=== PATIENT | male | born 1980 | race Caucasian/White ===

== ENCOUNTER 2016-09-04 10:37 | Emergency (ER) | payer BC ==
[2016-09-04 10:45] VITALS: BP 140/74; PULSE 58; RESP 15; TEMP 98.3
[2016-09-04] MEDS ORDERED: SODIUM CHLORIDE 0.9% 1,000 ML IV STA (10:47)
--- NOTE | 2016-09-04 10:55 | ED ---
Abdominal Pain HPI - General Chief Complaint: Abdominal Pain Stated Complaint: rt side pain/flank pain Time Seen by Provider: 09/04/16 10:47 Source: patient, RN notes reviewed Mode of arrival: ambulatory Limitations: no limitations - History of Present Illness Initial Comments: 36-year-old male presents emergency Department with chief complaint of right flank pain. Patient states it started approximately one hour ago. Patient states his son onset most severe pains are felt states nothing needed made it feel better or worse. Patient states that he did have an episode of dry heaving and states that now has subsided. Patient states pain is essentially resolved. He has no history kidney stones patient denies fever, chills, diarrhea constipation. Patient states that he was at some did not come emergency department because he was feeling better. - Related Data Previous Rx's Medication Instructions Recorded Hydrocodone/Acetaminophen [Theodore 1 tab PO Q6HR PRN #20 tab 09/04/16 5-325] Ibuprofen [Motrin] 600 mg PO Q8HR PRN #30 tab 09/04/16 Ondansetron Odt [Zofran Odt] 4 mg PO Q8HR PRN #10 tab 09/04/16 Allergies Allergy/AdvReac Type Severity Reaction Status Date / Time No Known Allergies Allergy Verified 09/04/16 10:45 Review of Systems ROS Statement: Those systems with pertinent positive or pertinent negative responses have been documented in the HPI. ROS Other: All systems not noted in ROS Statement are negative. Past Medical History Past Medical History: No Reported History History of Any Multi-Drug Resistant Organisms: None Reported Past Surgical History: No Surgical Hx Reported Past Psychological History: No Psychological Hx Reported Smoking Status: Never smoker Past Alcohol Use History: Occasional, Rare Past Drug Use History: None Reported General Exam Limitations: no limitations General appearance: alert, in no apparent distress Head exam: Present: atraumatic, normocephalic, normal inspection Respiratory exam: Present: normal lung sounds bilaterally. Absent: respiratory distress, wheezes, rales, rhonchi, stridor Cardiovascular Exam: Present: regular rate, normal rhythm, normal heart sounds. Absent: systolic murmur, diastolic murmur, rubs, gallop, clicks GI/Abdominal exam: Present: soft, normal bowel sounds. Absent: distended, tenderness, guarding, rebound, rigid Back exam: Absent: CVA tenderness (R), CVA tenderness (L) Neurological exam: Present: alert, oriented X3, CN II-XII intact Skin exam: Present: warm, dry, intact, normal color. Absent: rash Course Vital Signs 09/04/16 10:41 Temperature 98.3 F Pulse Rate 58 L Respiratory 15 Rate Blood Pressure 140/74 O2 Sat by Pulse 96 Oximetry Medical Decision Making - Medical Decision Making 36-year-old male present emergency from for some separate flank pain. Patient does have hematuria KUB does not reveal anystone. Patient remains symptom-free at this time. Patient most likely has passed stone into his bladder or urinated out. Patient be discharged with medications if symptoms return. Patient agrees this plan AND transfer. - Lab Data Lab Results 09/04/16 Range/Units 11:11 Urine Color Yellow Urine Appearance Clear (Clear) Urine pH 6.5 (5.0-8.0) Ur Specific [place] 1.012 (1.001-1.035) Urine Protein Trace H (Negative) Urine Glucose (UA) Negative (Negative) Urine Ketones Negative (Negative) Urine Blood Moderate H (Negative) Urine Nitrite Negative (Negative) Urine Bilirubin Negative (Negative) Urine Urobilinogen <2.0 (<2.0) mg/dL Ur Leukocyte Esterase Negative (Negative) Urine RBC 46 H (0-5) /hpf Urine WBC 4 (0-5) /hpf Hyaline Casts 3 H (0-2) /lpf Urine Mucus Rare H (None) /hpf Disposition Clinical Impression: Kidney stone, Right flank pain Disposition: HOME SELF-CARE Condition: Stable Instructions: Kidney Stones (ED) Additional Instructions: Please return to the Emergency Department if symptoms worsen or any other concerns. Prescriptions: Hydrocodone/Acetaminophen [Theodore 5-325] 1 tab PO Q6HR PRN #20 tab PRN Reason: Pain Ibuprofen [Motrin] 600 mg PO Q8HR PRN #30 tab PRN Reason: Pain Ondansetron Odt [Zofran Odt] 4 mg PO Q8HR PRN #10 tab PRN Reason: Nausea Referrals: Artur Crawford MD [Primary Care Provider] - 1-2 days
--- NOTE | 2016-09-04 11:08 | XR ---
EXAMINATION TYPE: XR KUB DATE OF EXAM ORDERED: 09/04/2016 HISTORY: abdominal pain. The patient states that he has right-sided flank pain. COMPARISON: None. FINDINGS: The abdominal gas pattern is normal. There is no evidence of obstruction or free air. No u nusual calcifications are seen. Specifically no calcifications are noted over the right kidney or juan ng the expected course of the right ureter. The right hip is visualized in the femoral head is nonspherical. IMPRESSION: 1. NO ACUTE INTRA-ABDOMINAL ABNORMALITY. 2. PLEASE CORRELATE CLINICALLY FOR FEMOROACETABULAR IMPINGEMENT SYNDROME.
[2016-09-04 11:38] LABS: Appearance,Urine Clear (Clear); Bilirubin,Urine Negative (Negative); Glucose,Urine (UA) Negative (Negative); Ketones,Urine Negative (Negative); Leukocyte Esterase,Urine Negative (Negative); Mucus,Urine Rare /hpf; Nitrite,Urine Negative (Negative); PH, Urine 6.5 (5.0-8.0); Particle Count 2875; Protein,Urine Trace (Negative); RBC,Urine 46 /hpf (0-5); Specific Gravity,Urine 1.012 (1.001-1.035); UA Billing (MACRO vs. MICRO) MICRO; Urobilinogen,Urine <2.0 mg/dL (<2.0); WBC,Urine 4 /hpf (0-5)
== END 2016-09-04 11:40 | disposition home or self-care (01) ==
LOC: EC 10:37
DX: N20.0 Calculus of kidney (principal)
CPT/HCPCS: 74000; 81001; 99284

== ENCOUNTER 2016-10-23 20:52 | Emergency (ER) | payer BC ==
[2016-10-23] MEDS ORDERED: SODIUM CHLORIDE 0.9% 1,000 ML IV STA (21:20)
[2016-10-23] MEDS ORDERED: MECLIZINE 12.5 MG TAB PO STA (21:20)
--- NOTE | 2016-10-23 21:23 | ED ---
General Adult HPI - General Chief complaint: Dizziness Stated complaint: Dizzy/Vomiting Time Seen by Provider: 10/23/16 21:14 Source: patient, family, RN notes reviewed Mode of arrival: wheelchair Limitations: no limitations - History of Present Illness Initial comments: 36-year-old male presents to the emergency department with a chief complaint of dizziness. Patient states that yesterday and episode but the world was spinning he has some nausea without vomiting. Patient states that today the world started to have an episode of spitting then he threw up once or twice. Patient states just feels like he can't focus his eyes. Patient states that he' s his eyes closed he does feel better. Patient states he's had about 5 or 6 episodes of this over the last year or so. Patient states she was concerned when he throughout should be. Patient states it is not currently having any other symptoms. Patient denies any recent fever, chills, shortness of breath, chest pain, back pain, abdominal pain, nausea vomiting, numbness or tingling, dysuria or hematuria, constipation or diarrhea, headaches or visual changes, or any other current symptoms. - Related Data Previous Rx's Medication Instructions Recorded Meclizine [Antivert] 12.5 mg PO Q6H #20 tablet 10/23/16 Allergies Allergy/AdvReac Type Severity Reaction Status Date / Time No Known Allergies Allergy Verified 10/23/16 20:58 Review of Systems ROS Statement: Those systems with pertinent positive or pertinent negative responses have been documented in the HPI. ROS Other: All systems not noted in ROS Statement are negative. Past Medical History Past Medical History: No Reported History History of Any Multi-Drug Resistant Organisms: None Reported Past Surgical History: No Surgical Hx Reported Past Psychological History: No Psychological Hx Reported Smoking Status: Never smoker Past Alcohol Use History: Occasional, Rare Past Drug Use History: None Reported General Exam - General Exam Comments Initial Comments: General: The patient is awake and alert, in no distress, and does not appear acutely ill. Eye: Pupils are equal, round and reactive to light, extra-ocular movements are intact; there is normal conjunctiva bilaterally. No signs of icterus. Ears, nose, mouth and throat: There are moist mucous membranes and no oral lesions. Neck: The neck is supple, there is no tenderness. Cardiovascular: There is a regular rate and rhythm. No murmur, rub or gallop is appreciated. Respiratory: Lungs are clear to auscultation, respirations are non-labored, breath sounds are equal. No wheezes, stridor, rales, or rhonchi. Gastrointestinal: Soft, non-distended, non-tender abdomen without masses or organomegaly noted. There is no rebound or guarding present. No CVA tenderness. Bowel sounds are unremarkable. Back: There is no tenderness to palpation in the midline. There is no obvious deformity. No rashes noted. Musculoskeletal: Normal ROM, no tenderness, There is no pedal edema. There is no calf tenderness or swelling. Sensation intact. Pulses equal bilaterally 2+. Neurological: CN II-XII intact, There are no obvious motor or sensory deficits. Coordination appears grossly intact. Speech is normal. Negative Romberg's, negative ataxia. Skin: Skin is warm and dry and no rashes or lesions are noted. Psychiatric: Cooperative, appropriate mood & affect, normal judgment. Limitations: no limitations Course Vital Signs 10/23/16 10/23/16 10/23/16 20:55 21:39 22:23 Temperature 97.1 F L Pulse Rate 54 L 64 70 Respiratory 18 16 16 Rate Blood Pressure 126/89 119/69 127/69 O2 Sat by Pulse 98 99 100 Oximetry EKG Findings - EKG Comments: EKG Findings:: Sinus bradycardia with sinus arrhythmia ventricular rate 62, normal axis, no atopy, no S-T depressions or elevations, Medical Decision Making - Medical Decision Making 36-year-old male presents to the emergency department with a chief complaint of dizziness. At this time patient's symptoms are consistent with vertigo. CAT scan of the center show some nasal congestion. This time we did discuss that we will given Antivert for home. He states he has had great improvement of his dizziness with the Antivert here. We did give him follow-up urology we did discuss return parameters all the questions that he stated he understood he is given plan. He will be discharged. - Lab Data Result diagrams: 10/23/16 21:38 10/23/16 21:38 Lab Results 10/23/16 10/23/16 Range/Units 21:38 21:38 WBC 7.5 (3.8-10.6) k/uL RBC 5.23 (4.30-5.90) m/uL Hgb 15.4 (13.0-17.5) gm/dL Hct 44.2 (39.0-53.0) % MCV 84.5 (80.0-100.0) fL MCH 29.4 (25.0-35.0) pg MCHC 34.8 (31.0-37.0) g/dL RDW 12.2 (11.5-15.5) % Plt Count 294 (150-450) k/uL Neutrophils % 66 % Lymphocytes % 25 % Monocytes % 5 % Eosinophils % 3 % Basophils % 1 % Neutrophils # 5.0 (1.3-7.7) k/uL Lymphocytes # 1.9 (1.0-4.8) k/uL Monocytes # 0.4 (0-1.0) k/uL Eosinophils # 0.2 (0-0.7) k/uL Basophils # 0.0 (0-0.2) k/uL Sodium 142 (137-145) mmol/L Potassium 4.3 (3.5-5.1) mmol/L Chloride 102 (98-107) mmol/L Carbon Dioxide 29 (22-30) mmol/L Anion Gap 11 mmol/L BUN 14 (9-20) mg/dL Creatinine 1.20 (0.66-1.25) mg/dL Est GFR (MDRD) Af Amer >60 (>60 ml/min/1.73 sqM) Est GFR (MDRD) Non-Af >60 (>60 ml/min/1.73 sqM) Glucose 103 H (74-99) mg/dL Calcium 9.9 (8.4-10.2) mg/dL Total Bilirubin 0.3 (0.2-1.3) mg/dL AST 26 (17-59) U/L ALT 46 (21-72) U/L Alkaline Phosphatase 75 (38-126) U/L Total Protein 7.7 (6.3-8.2) g/dL Albumin 4.6 (3.5-5.0) g/dL - Radiology Data Radiology results: report reviewed, image reviewed Disposition Clinical Impression: Vertigo Disposition: HOME SELF-CARE Condition: Stable Instructions: Dizziness (ED), Vertigo (ED) Additional Instructions: Please use medication as discussed. Please follow up with family doctor if symptoms have not improved over the next two days. Please return to the emergency room if your symptoms increase or worsen or for any other concerns. Prescriptions: Meclizine [Antivert] 12.5 mg PO Q6H #20 tablet Referrals: Artur Crawford MD [Primary Care Provider] - 1-2 days Time of Disposition: 22:39
[2016-10-23 21:53] LABS: Basophils % (A) 1 %; CH 29.7; CHCM 35.3; Eosinophils # (A) 0.2 k/uL (0-0.7); Eosinophils % (A) 3 %; HCT 44.2 % (39.0-53.0); HDW 2.92; HGB 15.4 gm/dL (13.0-17.5); Luc # (Auto) 0.11; Luc % (Auto) 1; Lymphocytes # (A) 1.9 k/uL (1.0-4.8); Lymphocytes % (A) 25 %; MCH 29.4 pg (25.0-35.0); MCHC 34.8 g/dL (31.0-37.0); MCV 84.5 fL (80.0-100.0); Mean Platelet Volume 6.6; Monocytes # (A) 0.4 k/uL (0-1.0); Monocytes % (A) 5 %; Neutrophils % (A) 66 %; RBC 5.23 m/uL (4.30-5.90); RDW 12.2 % (11.5-15.5); WBC 7.5 k/uL (3.8-10.6); WBC (Perox) 7.58
[2016-10-23 21:57] LABS: ALT 46 U/L (21-72); AST 26 U/L (17-59); Alkaline Phosphatase 75 U/L (38-126); Anion Gap 11 mmol/L; Blood Urea Nitrogen 14 mg/dL (9-20); Calcium 9.9 mg/dL (8.4-10.2); Carbon Dioxide 29 mmol/L (22-30); Chloride 102 mmol/L (98-107); Glucose 103 mg/dL (74-99); Non-African American GFR(MDRD) >60 (>60 ml/min/1.73 sqM); Potassium 4.3 mmol/L (3.5-5.1); Sodium 142 mmol/L (137-145); Total Bilirubin 0.3 mg/dL (0.2-1.3); Total Protein 7.7 g/dL (6.3-8.2)
--- NOTE | 2016-10-23 22:16 | CT ---
EXAMINATION TYPE: CT brain wo con DATE OF EXAM: 10/23/2016 COMPARISON: NONE HISTORY: 36-year-old male with Headache, dizziness and nausea and vomiting. TECHNIQUE: Examination was done in axial plane without intravenous contrast. Coronal and sagittal r econstructions performed. CT DLP: 1052.60 mGycm Automated exposure control for dose reduction was used. FINDINGS: There is no evidence of acute intracranial hemorrhage, acute ischemic changes, mass, mass-effect, or extra-axial fluid collection. There is no effacement of cerebral sulci or basal subarachnoid cister ns. There is no hydrocephalus. There is no midline shift. Quintero-white matter distinction is preserv ed. There appears to be prominent soft tissue within the nasal cavity that could represent nasal congesti on. Mild mucosal thickening within the ethmoid air cells. Mastoid air cells are well pneumatized. Orb its and globes appear intact. IMPRESSION: 1. No acute intracranial abnormality seen. 2. Prominent soft tissue in the nasal cavity probably due to nasal congestion. Clinically correlate.
[2016-10-23 22:46] VITALS: BP 124/74; PULSE 59; RESP 18; TEMP 97.6
== END 2016-10-23 22:49 | disposition home or self-care (01) ==
LOC: EC 20:52
DX: R42 Dizziness and giddiness (principal); R11.0 Nausea; R09.81 Nasal congestion
CPT/HCPCS: 36415; 70450; 80053; 85025; 93005; 96360; 99284

== ENCOUNTER 2019-05-05 20:31 | Emergency (ER) | payer BC ==
[2019-05-05] MEDS ORDERED: methylPREDNISolone SOD SUCCI 125 MG/2 ML VIAL IV STA (21:23)
[2019-05-05] MEDS ORDERED: MAGNESIUM SULFATE-D5W PMX 1 GM in DEXTROSE/WATER 1 100ML.BAG IVPB STA (21:23)
[2019-05-05] MEDS ORDERED: IPRATROPIUM-ALBUTEROL 3 ML NEB INHALATION STA (21:23)
--- NOTE | 2019-05-05 21:51 | XR ---
EXAMINATION TYPE: XR chest 2V DATE OF EXAM: 05/05/2019 COMPARISON: NONE HISTORY: Difficulty breathing TECHNIQUE: FINDINGS: Heart and mediastinum are normal. There is small area of pneumonia in the left lower lobe i n the posterior basal segment. The other lung hua are clear. Bony thorax appears normal. IMPRESSION: Mild left lower lobe pneumonia.
[2019-05-05 21:56] LABS: Basophils % (A) 0 %; Eosinophils % (A) 0 %; HCT 42.8 % (39.0-53.0); HGB 14.4 gm/dL (13.0-17.5); Lymphocytes # (A) 0.8 k/uL (1.0-4.8); Lymphocytes % (A) 4 %; MCH 28.7 pg (25.0-35.0); MCHC 33.6 g/dL (31.0-37.0); MCV 85.5 fL (80.0-100.0); Mean Platelet Volume 7.3; Monocytes # (A) 0.7 k/uL (0-1.0); Monocytes % (A) 4 %; Neutrophils # (A) 17.3 k/uL (1.3-7.7); Neutrophils % (A) 91 %; Platelet Count 321 k/uL (150-450); RBC 5.01 m/uL (4.30-5.90); RDW 11.7 % (11.5-15.5); WBC 18.9 k/uL (3.8-10.6)
[2019-05-05 22:11] LABS: ALT 19 U/L (4-49); AST 23 U/L (17-59); African American GFR (CKD) >90 (>60 ml/min/1.73 sqM); Albumin 4.3 g/dL (3.5-5.0); Alkaline Phosphatase 82 U/L (38-126); Anion Gap 10 mmol/L; Blood Urea Nitrogen 16 mg/dL (9-20); Calcium 9.8 mg/dL (8.4-10.2); Carbon Dioxide 25 mmol/L (22-30); Chloride 101 mmol/L (98-107); D-Dimer 0.22 mg/L FEU (<0.60); Glucose 129 mg/dL (74-99); Non-African American GFR(CKD) 83 (>60 ml/min/1.73 sqM); Partial Thromboplastin Time 24.9 sec (22.0-30.0); Potassium 4.6 mmol/L (3.5-5.1); Prothrombin Time 10.5 sec (9.0-12.0); Sodium 136 mmol/L (137-145); Total Bilirubin 0.9 mg/dL (0.2-1.3); Total Protein 7.8 g/dL (6.3-8.2)
[2019-05-05 22:32] VITALS: PULSE 88
[2019-05-05] MEDS ORDERED: cefTRIAXone IN SWFI 1,000 MG/10 ML SYRINGE IVP STA (22:38)
--- NOTE | 2019-05-05 23:09 | ED ---
SOB HPI - General Chief Complaint: Shortness of Breath Stated Complaint: MAURICE Time Seen by Provider: 05/05/19 20:35 Source: patient Mode of arrival: ambulatory Limitations: no limitations - History of Present Illness Initial Comments: The patient is a 38-year-old previously healthy male who presents to the emergency room with reported cough. He states that he has had a cough and shortness of breath with a past week. He was seen at his primary care office yesterday. He was given prescriptions for prednisone, Tessalon Perles, an inhaler and azithromycin. He began taking the medications and has only taken 2 doses however he reports that he feels worse. He states he feels more short of breath with nonproductive cough. Denies any sick contacts with similar symptoms. Admits to chills without fevers. No nausea or vomiting. Denies any chest pain. Does admit to chest wall pain with coughing. No abdominal pain. Denies diarrhea, constipation, melanotic stools or hematochezia. No lower crummy swelling. Does admit that his mom was diagnosed with a blood clot 6 months ago. It was unprovoked. Denies any headaches or visual changes. Denies syncope or presyncope. There are no alleviating, precipitating or modifying factors - Related Data Previous Rx's Medication Instructions Recorded Meclizine [Antivert] 12.5 mg PO Q6H #20 tablet 10/23/16 Albuterol Nebulized [Ventolin 2.5 mg INHALATION Q4H PRN #25 nebu 05/05/19 Nebulized] Amoxicillin/Potassium Clav 1 tab PO Q12HR #20 tab 05/05/19 [Augmentin 875-125 Tablet] Ipratropium Nebulized [Atrovent 0.5 mg INHALATION Q4HR #25 neb 05/05/19 Nebulized 0.2 MG/ML] Allergies Allergy/AdvReac Type Severity Reaction Status Date / Time No Known Allergies Allergy Verified 10/23/16 20:58 Review of Systems ROS Statement: Those systems with pertinent positive or pertinent negative responses have been documented in the HPI. ROS Other: All systems not noted in ROS Statement are negative. Past Medical History Past Medical History: No Reported History History of Any Multi-Drug Resistant Organisms: None Reported Past Surgical History: No Surgical Hx Reported Past Psychological History: No Psychological Hx Reported Smoking Status: Never smoker Past Alcohol Use History: Occasional, Rare Past Drug Use History: None Reported General Exam Limitations: no limitations General appearance: alert, in no apparent distress Head exam: Present: atraumatic, normocephalic, normal inspection Eye exam: Present: normal appearance, PERRL, EOMI. Absent: scleral icterus, conjunctival injection, periorbital swelling ENT exam: Present: normal exam, mucous membranes moist Neck exam: Present: normal inspection. Absent: tenderness, meningismus, lymphadenopathy Respiratory exam: Present: wheezes. Absent: respiratory distress, rales, rhonchi, stridor Cardiovascular Exam: Present: regular rate, normal rhythm, normal heart sounds. Absent: systolic murmur, diastolic murmur, rubs, gallop, clicks GI/Abdominal exam: Present: soft, normal bowel sounds. Absent: distended, tenderness, guarding, rebound, rigid Extremities exam: Present: normal inspection, full ROM, normal capillary refill. Absent: tenderness, pedal edema, joint swelling, calf tenderness Back exam: Present: normal inspection Neurological exam: Present: alert, oriented X3, CN II-XII intact Psychiatric exam: Present: normal affect, normal mood Skin exam: Present: warm, dry, intact, normal color. Absent: rash Course Vital Signs 05/05/19 05/05/19 05/05/19 20:33 20:50 21:52 Temperature 98.6 F Pulse Rate 96 91 Respiratory 18 18 20 Rate Blood Pressure 144/84 127/74 O2 Sat by Pulse 94 L 98 Oximetry 05/05/19 05/05/19 05/05/19 22:19 22:32 23:09 Temperature 98 F Pulse Rate 87 88 88 Respiratory 18 Rate Blood Pressure 115/57 O2 Sat by Pulse 95 Oximetry 05/05/19 23:16 Temperature 98 F Pulse Rate 88 Respiratory 18 Rate Blood Pressure 115/57 O2 Sat by Pulse 95 Oximetry Medical Decision Making - Medical Decision Making Upon arrival the patient was placed into room 5. A thorough history and physical exam was performed. Peripheral IV was established. The patient was given 125 mg of Solu-Medrol, 1 g of magnesium and provided with a DuoNeb breathing treatment. Laboratory studies were conducted which demonstrated an elevated white blood cell count of 18.9. Troponin is negative. Influenza A and B are negative. Chest x-ray does demonstrate a mild left lower lobe pneumonia. I discussed this with the patient. A blood culture was obtained and the patient was given a dose of Rocephin. He is REM azithromycin at home. The patient is saturating 94-95% without oxygen assistance. He demonstrates no conversational dyspnea. I discussed the diagnosis, differential and treatment options. I did offer hospital admission because of the patient's tachycardia and low oxygen saturation however he states that he wanted to go home. He has not failed outpatient treatment as he has not taken enough doses of the medication. I inf ormed him that I did want to add on Augmentin to his regimen. I also provided the patient with a prescription for Ventolin and ipratropium. He does have access to a nebulizer at home. He needs to follow up with his primary care doctor in 2-4 days to ensure he is improving. He needs a repeat chest x-ray in 6 weeks. Return to the emergency department for any new or worsening symptoms. The patient his are in agreement with the treatment plan and the patient was discharged home in stable condition - Lab Data Result diagrams: 05/05/19 21:00 05/05/19 21:00 Lab Results 05/05/19 05/05/19 05/05/19 Range/Units 21:00 21:00 21:00 WBC 18.9 H (3.8-10.6) k/uL RBC 5.01 (4.30-5.90) m/uL Hgb 14.4 (13.0-17.5) gm/dL Hct 42.8 (39.0-53.0) % MCV 85.5 (80.0-100.0) fL MCH 28.7 (25.0-35.0) pg MCHC 33.6 (31.0-37.0) g/dL RDW 11.7 (11.5-15.5) % Plt Count 321 (150-450) k/uL Neutrophils % 91 % Lymphocytes % 4 % Monocytes % 4 % Eosinophils % 0 % Basophils % 0 % Neutrophils # 17.3 H (1.3-7.7) k/uL Lymphocytes # 0.8 L (1.0-4.8) k/uL Monocytes # 0.7 (0-1.0) k/uL Eosinophils # 0.0 (0-0.7) k/uL Basophils # 0.0 (0-0.2) k/uL PT (9.0-12.0) sec INR (<1.2) APTT (22.0-30.0) sec D-Dimer (<0.60) mg/L FEU Sodium 136 L (137-145) mmol/L Potassium 4.6 (3.5-5.1) mmol/L Chloride 101 (98-107) mmol/L Carbon Dioxide 25 (22-30) mmol/L Anion Gap 10 mmol/L BUN 16 (9-20) mg/dL Creatinine 1.14 (0.66-1.25) mg/dL Est GFR (CKD-EPI)AfAm >90 (>60 ml/min/1.73 sqM) Est GFR (CKD-EPI)NonAf 83 (>60 ml/min/1.73 sqM) Glucose 129 H (74-99) mg/dL Plasma Lactic Acid Rafa 1.3 (0.7-2.0) mmol/L Calcium 9.8 (8.4-10.2) mg/dL Total Bilirubin 0.9 (0.2-1.3) mg/dL AST 23 (17-59) U/L ALT 19 (4-49) U/L Alkaline Phosphatase 82 (38-126) U/L Troponin I (0.000-0.034) ng/mL Total Protein 7.8 (6.3-8.2) g/dL Albumin 4.3 (3.5-5.0) g/dL Influenza Type A RNA (Not Detectd) Influenza Type B (PCR) (Not Detectd) 05/05/19 05/05/19 05/05/19 Range/Units 21:00 21:00 22:00 WBC (3.8-10.6) k/uL RBC (4.30-5.90) m/uL Hgb (13.0-17.5) gm/dL Hct (39.0-53.0) % MCV (80.0-100.0) fL MCH (25.0-35.0) pg MCHC (31.0-37.0) g/dL RDW (11.5-15.5) % Plt Count (150-450) k/uL Neutrophils % % Lymphocytes % % Monocytes % % Eosinophils % % Basophils % % Neutrophils # (1.3-7.7) k/uL Lymphocytes # (1.0-4.8) k/uL Monocytes # (0-1.0) k/uL Eosinophils # (0-0.7) k/uL Basophils # (0-0.2) k/uL PT 10.5 (9.0-12.0) sec INR 1.0 (<1.2) APTT 24.9 (22.0-30.0) sec D-Dimer 0.22 (<0.60) mg/L FEU Sodium (137-145) mmol/L Potassium (3.5-5.1) mmol/L Chloride (98-107) mmol/L Carbon Dioxide (22-30) mmol/L Anion Gap mmol/L BUN (9-20) mg/dL Creatinine (0.66-1.25) mg/dL Est GFR (CKD-EPI)AfAm (>60 ml/min/1.73 sqM) Est GFR (CKD-EPI)NonAf (>60 ml/min/1.73 sqM) Glucose (74-99) mg/dL Plasma Lactic Acid Rafa (0.7-2.0) mmol/L Calcium (8.4-10.2) mg/dL Total Bilirubin (0.2-1.3) mg/dL AST (17-59) U/L ALT (4-49) U/L Alkaline Phosphatase (38-126) U/L Troponin I <0.012 (0.000-0.034) ng/mL Total Protein (6.3-8.2) g/dL Albumin (3.5-5.0) g/dL Influenza Type A RNA Not Detected (Not Detectd) Influenza Type B (PCR) Not Detected (Not Detectd) - EKG Data EKG Comments: EKG demonstrates normal sinus rhythm with ventricular rate 90. ID interval 164. QRS 80. QTC of 406. No acute ST segment elevations or depressions concerning for ischemic changes. No signs of Hoeiw-Njgumqvbv-Jmfdu or Brugada. Disposition Clinical Impression: Pneumonia, Leukocytosis Disposition: HOME SELF-CARE Condition: Stable Instructions (If sedation given, give patient instructions): Bacterial Pneumonia (ED) Additional Instructions: Please follow-up with your primary care doctor in 2-4 days. If you have no improvement in your symptoms return to the emergency department. Use the breathing treatments every 4 hours. Continue taking the azithromycin and steroids at home. Prescriptions: Ipratropium Nebulized [Atrovent Nebulized 0.2 MG/ML] 0.5 mg INHALATION Q4HR #25 neb Amoxicillin/Potassium Clav [Augmentin 875-125 Tablet] 1 tab PO Q12HR #20 tab Albuterol Nebulized [Ventolin Nebulized] 2.5 mg INHALATION Q4H PRN #25 nebu PRN Reason: difficulty in breathing Is patient prescribed a controlled substance at d/c from ED?: No Referrals: Edwardo Park MD [Primary Care Provider] - 1-2 days Time of Disposition: 23:09
[2019-05-05 23:11] VITALS: BP 115/57; RESP 18; TEMP 98
== END 2019-05-05 23:17 | disposition home or self-care (01) ==
LOC: EC 20:31
DX: J18.9 Pneumonia, unspecified organism (principal); D72.829 Elevated white blood cell count, unspecified; R00.0 Tachycardia, unspecified; Z53.20 Procedure and treatment not carried out because of patient's decision for unspecified reasons
CPT/HCPCS: 36415; 94640; 93005; 85379; 80053; 83605; 84484; 85025; 85610; 85730; 87040; 87502; 71046; 99285; 96365; 96375 ×2; J2930; J0696; J3475

== ENCOUNTER → 2022-02-15 | Outpatient (CLI) | payer BC ==
--- NOTE | 2022-02-15 20:06 | CT ---
EXAMINATION TYPE: CT chest w con CT DLP: 528.8 mGycm, Automated exposure control for dose reduction was used. 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 Sagittal and coronal reformats were created for review. Contrast used:100 mL of Isovue 370 with IV Contrast Oral contrast used: none. FINDINGS: LUNGS/ PLEURA: The lung parenchyma appears unremarkable. AIRWAY: Patent and unremarkable. HEART: Size within normal limits. MEDIASTINUM: No gross evidence of adenopathy. Lipomatous lesion measuring 7.5 x 4.8 x 3.3 cm in the i nferior posterior mediastinum near the gastroesophageal junction on the right of the esophagus. VASCULATURE: No aortic aneurysm. MUSCULOSKELETAL: No acute osseous abnormalities SOFT TISSUES/LYMPH NODES: Unremarkable. LOWER NECK: No significant findings. UPPER ABDOMEN: Nonobstructing right renal calculus.1 IMPRESSION: Fat-containing lesion at the gastroesophageal junction measuring up to 7.5 x 4.8 x 3.3 cm findings li miley represent a lipoma.
== END | disposition home or self-care (01) ==
LOC: CANPRECLI → RADCTMAIN 17:16
PROVIDERS: ATTEND Family Medicine
DX: D15.2 Benign neoplasm of mediastinum (principal); K63.89 Other specified diseases of intestine
CPT/HCPCS: 71260; Q9967

== ENCOUNTER → 2022-06-18 | Outpatient (CLI) | payer BC ==
--- NOTE | 2022-06-18 09:10 | FL ---
EXAMINATION TYPE: FL UGI DATE OF EXAM: 06/18/2022 COMPARISON: CT chest 02/15/2022 HISTORY: Dysphagia TECHNIQUE: A double contrast UGI study is performed. A total of 29 seconds of fluoroscopic time was utilized during procedure and 188 images obtained. Total DAP 8543.42. FINDINGS: The esophagus shows normal motility and emptying into the stomach without holdup. Small sliding-type hernia demonstrated in the supine position which reduces in the upright position. Spontaneous gastroe sophageal reflux to the midesophagus. The stomach shows normal distensibility, peristalsis, and mucosal folds. No evidence of any mass or ulcer disease. The duodenal bulb and visualized proximal small bowel are unremarkable. IMPRESSION: 1. Small sliding hiatal hernia in the supine position which reduces in the upright position. No hold up of contrast at the GE junction to suggest stricture or clinically significant extrinsic compressi on. 2. Spontaneous gastroesophageal reflux to the midesophagus.
== END | disposition home or self-care (01) ==
LOC: RADUSWWP 08:15
PROVIDERS: ATTEND Student in an Organized Health Care Education/Training Program
DX: K44.9 Diaphragmatic hernia without obstruction or gangrene (principal); K21.9 Gastro-esophageal reflux disease without esophagitis; R13.19 Other dysphagia
CPT/HCPCS: 74240

== ENCOUNTER 2023-11-16 09:09 | Inpatient (IN) | payer BC ==
[2023-11-16] MEDS: ONDANSETRON 4 MG/2 ML VIAL IVP STA (09:32)
[2023-11-16] MEDS: KETOROLAC 15 MG/ML 1 ML VIAL IVP STA (09:32)
[2023-11-16] MEDS: SODIUM CHLORIDE 0.9% 2,000 ML IV STA (09:33)
[2023-11-16 09:44] LABS: Basophils % (A) 0 %; Eosinophils # (A) 0.1 k/uL (0-0.7); Eosinophils % (A) 1 %; HCT 43.5 % (39.0-53.0); HGB 15.3 gm/dL (13.0-17.5); Lymphocytes # (A) 0.9 k/uL (1.0-4.8); Lymphocytes % (A) 8 %; MCH 30.7 pg (25.0-35.0); MCHC 35.1 g/dL (31.0-37.0); MCV 87.3 fL (80.0-100.0); Mean Platelet Volume 6.6; Monocytes # (A) 0.5 k/uL (0-1.0); Monocytes % (A) 4 %; Neutrophils # (A) 10.5 k/uL (1.3-7.7); Neutrophils % (A) 87 %; Platelet Count 310 k/uL (150-450); RBC 4.98 m/uL (4.30-5.90); RDW 12.4 % (11.5-15.5)
[2023-11-16 09:57] LABS: ALT 32 U/L (4-49); AST 27 U/L (17-59); African American GFR (CKD) 69 (>60 ml/min/1.73 sqM); Albumin 4.3 g/dL (3.5-5.0); Alkaline Phosphatase 78 U/L (38-126); Anion Gap 7 mmol/L; Blood Urea Nitrogen 17 mg/dL (9-20); Calcium 9.6 mg/dL (8.4-10.2); Carbon Dioxide 25 mmol/L (22-30); Chloride 106 mmol/L (98-107); Glucose 126 mg/dL (74-99); Lipase 50 U/L (23-300); Non-African American GFR(CKD) 60 (>60 ml/min/1.73 sqM); Potassium 4.3 mmol/L (3.5-5.1); Sodium 138 mmol/L (137-145); Total Bilirubin 0.6 mg/dL (0.2-1.3); Total Protein 7.5 g/dL (6.3-8.2)
--- NOTE | 2023-11-16 10:17 | CT ---
EXAMINATION TYPE: CT abdomen pelvis wo con CT DLP: 819.3 mGycm, Automated exposure control for dose reduction was used. DATE OF EXAM: 11/16/2023 10:05 AM COMPARISON: 02/15/2022 CLINICAL INDICATION: Male, 43 years old with history of right flank pain; Renal stone TECHNIQUE: Axial CT abdomen pelvis wo con;Sagittal and coronal reformats were created on a separate workstation. Contrast used: mL of , (none if empty) Oral contrast used: without Oral Contrast (none if empty) FINDINGS: LOWER CHEST: Similar hernia containing fat probable omentum extending along the gastroesophageal junc tion into the inferior mediastinum. ABDOMEN LIVER: Unremarkable GALLBLADDER AND BILE DUCTS: Unremarkable. PANCREAS: Unremarkable. SPLEEN: Unremarkable. ADRENAL GLANDS: Unremarkable. KIDNEYS AND URETERS: Mild right hydronephrosis secondary obstructing 6 mm calculus at the proximal ri ght ureter. No left hydronephrosis. PELVIS BLADDER: Unremarkable REPRODUCTIVE: Prostate is enlarged in size measuring 5.3 cm in transverse dimension. ABDOMEN & PELVIS STOMACH AND BOWEL: No evidence of bowel obstruction. PERITONEUM/RETROPERITONEUM: No evidence of pneumoperitoneum or free fluid. VASCULATURE: No evidence of aortic aneurysm. MUSCULOSKELETAL: No acute osseous abnormalities LYMPH NODES: No gross evidence for lymphadenopathy. SOFT TISSUE/ABDOMINAL WALL: Fat-containing umbilical hernia. IMPRESSION: 1. Mild right hydronephrosis secondary obstructing 6 mm calculus at the proximal right ureter. No le ft hydronephrosis 2. Prostatomegaly, correlate with serum PSA. 3. Similar hiatal hernia with omentum extending through the aortic hiatus.
--- NOTE | 2023-11-16 10:19 | ED ---
Abdominal Pain HPI - General Chief Complaint: Abdominal Pain Stated Complaint: Abdominal Pain Time Seen by Provider: 11/16/23 09:18 Source: patient, RN notes reviewed Mode of arrival: ambulatory Limitations: no limitations - History of Present Illness Initial Comments: 43-year-old male presents emergency department complaint of right flank pain. Patient states has had pain for several days states that he has had associated nausea vomiting states nothing is helping with the pain. Patient states initially felt in his back he has had a history of kidney stones but this feels worse. Denies any fevers or chills. - Related Data Home Medications Medication Instructions Recorded Confirmed Simvastatin [Zocor] 20 mg PO HS 11/16/23 11/16/23 Allergies Allergy/AdvReac Type Severity Reaction Status Date / Time No Known Allergies Allergy Verified 11/16/23 11:04 Review of Systems ROS Statement: Those systems with pertinent positive or pertinent negative responses have been documented in the HPI. ROS Other: All systems not noted in ROS Statement are negative. Past Medical History Past Medical History: No Reported History History of Any Multi-Drug Resistant Organisms: None Reported Past Surgical History: No Surgical Hx Reported Past Psychological History: No Psychological Hx Reported Smoking Status: Never smoker Past Alcohol Use History: Occasional, Rare Past Drug Use History: None Reported General Exam Limitations: no limitations General appearance: alert, in no apparent distress Head exam: Present: atraumatic, normocephalic, normal inspection Neck exam: Present: normal inspection. Absent: tenderness, meningismus, lymphadenopathy Respiratory exam: Present: normal lung sounds bilaterally. Absent: respiratory distress, wheezes, rales, rhonchi, stridor Cardiovascular Exam: Present: regular rate, normal rhythm, normal heart sounds. Absent: systolic murmur, diastolic murmur, rubs, gallop, clicks GI/Abdominal exam: Present: soft, tenderness, normal bowel sounds. Absent: distended, guarding, rebound, rigid Back exam: Present: CVA tenderness (R). Absent: CVA tenderness (L) Neurological exam: Present: alert Course Vital Signs 11/16/23 11/16/23 09:15 10:36 Temperature 97.8 F Pulse Rate 56 L 59 L Respiratory 18 18 Rate Blood Pressure 121/81 124/79 O2 Sat by Pulse 99 94 L Oximetry Medical Decision Making - Medical Decision Making Was pt. sent in by a medical professional or institution (Dr., PA, IMAGE ASSEMBLER, urgent care, hospital, or senior care...) When possible be specific @ -No Did you speak to anyone other than the patient for history (EMS, parent, family, police, friend...)? What history was obtained from this source @ -No Did you review nursing and triage notes (agree or disagree)? Why? @ -I reviewed and agree with nursing and triage notes Were old charts reviewed (outside hosp., previous admission, EMS record, old EKG, old radiological studies, urgent care reports/EKG's, senior care records)? Report findings @ -No old charts were reviewed Differential Diagnosis (chest pain, altered mental status, abdominal pain women, abdominal pain men, vaginal bleeding, weakness, fever, dyspnea, syncope, headache, dizziness, GI bleed, back pain, seizure, CVA, palpatations, mental health, musculoskeletal)? @ -Differential Abdominal Pain Men: Appendicitis, cholecystitis, diverticulosis, ischemic bowel, pancreatitis, hepatitis, UTI, gastroenteritis, AAA, incarcerated hernia, bowel obstruction, constipation, inflammatory bowel, hepatitis, peptic ulcer disease, splenic infarction, perforated viscus, testicular torsion, this is not meant to be an all-inclusive list EKG interpreted by me (3pts min.). @ -None X-rays interpreted by me (1pt min.). @ -None done CT interpreted by me (1pt min.). @ -CT abdomen pelvis showing evidence of right proximal ureteral calculus 6-7 mm U/S interpreted by me (1pt. min.). @ -None done What testing was considered but not performed or refused? (CT, X-rays, U/S, labs)? Why? @ -None What meds were considered but not given or refused? Why? @ -None Did you discuss the management of the patient with other professionals (professionals i.e. CAMDEN Sepulveda, IMAGE ASSEMBLER, lab, RT, psych nurse, social service liaison, seam stayer, t eacher, medical laboratory technical officer, transplant case manager)? Give summary @ -Urology regarding CT findings urinalysis and admission. Was smoking cessation discussed for >3mins.? @ -No Was critical care preformed (if so, how long)? @ -No Were there social determinants of health that impacted care today? How? (Homelessness, low income, unemployed, alcoholism, drug addiction, transportation, low edu. Level, literacy, decrease access to med. care, senior living, rehab)? @ -No Was there de-escalation of care discussed even if they declined (Discuss DNR or withdrawal of care, Hospice)? DNR status @ -No What co-morbidities impacted this encounter? (DM, HTN, Smoking, COPD, CAD, Cancer, CVA, ARF, Chemo, Hep., AIDS, mental health diagnosis, sleep apnea, morbid obesity)? @ -None Was patient admitted / discharged? Hospital course, mention meds given and route, prescriptions, significant lab abnormalities, going to OR and other pe rtinent info. @ -Admitted patient found to have UTI with obstructing ureteral calculus patient was placed on Rocephin will be kept n.p.o. after midnight and admitted to urology Undiagnosed new problem with uncertain prognosis? @ -No Drug Therapy requiring intensive monitoring for toxicity (Heparin, Nitro, Insulin, Cardizem)? @ -No Were any procedures done? @ -No Diagnosis/symptom? @ -Ureteral calculus, UTI Acute, or Chronic, or Acute on Chronic? @ -Acute Uncomplicated (without systemic symptoms) or Complicated (systemic symptoms)? @ -Complicated Side effects of treatment? @ -No Exacerbation, Progression, or Severe Exacerbation? @ -No Poses a threat to life or bodily function? How? (Chest pain, [place], [place], pneumonia, PE, COPD, DKA, ARF, appy, cholecystitis, CVA, Diverticulitis, Homicidal, Suic idal, threat to staff... and all critical care pts) @ -Yes sepsis, endorgan failure - Lab Data Result diagrams: 11/16/23 09:32 11/16/23 09:32 Lab Results 11/16/23 11/16/23 11/16/23 Range/Units 09:32 09:32 10:36 WBC 12.0 H (3.8-10.6) k/uL RBC 4.98 (4.30-5.90) m/uL Hgb 15.3 (13.0-17.5) gm/dL Hct 43.5 (39.0-53.0) % MCV 87.3 (80.0-100.0) fL MCH 30.7 (25.0-35.0) pg MCHC 35.1 (31.0-37.0) g/dL RDW 12.4 (11.5-15.5) % Plt Count 310 (150-450) k/uL MPV 6.6 Neutrophils % 87 % Lymphocytes % 8 % Monocytes % 4 % Eosinophils % 1 % Basophils % 0 % Neutrophils # 10.5 H (1.3-7.7) k/uL Lymphocytes # 0.9 L (1.0-4.8) k/uL Monocytes # 0.5 (0-1.0) k/uL Eosinophils # 0.1 (0-0.7) k/uL Basophils # 0.0 (0-0.2) k/uL Sodium 138 (137-145) mmol/L Potassium 4.3 (3.5-5.1) mmol/L Chloride 106 (98-107) mmol/L Carbon Dioxide 25 (22-30) mmol/L Anion Gap 7 mmol/L BUN 17 (9-20) mg/dL Creatinine 1.44 H (0.66-1.25) mg/dL Est GFR (CKD-EPI)AfAm 69 (>60 ml/min/1.73 sqM) Est GFR (CKD-EPI)NonAf 60 (>60 ml/min/1.73 sqM) Glucose 126 H (74-99) mg/dL Calcium 9.6 (8.4-10.2) mg/dL Total Bilirubin 0.6 (0.2-1.3) mg/dL AST 27 (17-59) U/L ALT 32 (4-49) U/L Alkaline Phosphatase 78 (38-126) U/L Total Protein 7.5 (6.3-8.2) g/dL Albumin 4.3 (3.5-5.0) g/dL Lipase 50 (23-300) U/L Urine Color Light Red Urine Appearance Turbid (Clear) Urine pH 6.5 (5.0-8.0) Ur Specific Golden 1.018 (1.001-1.035) Urine Protein 2+ H (Negative) Urine Glucose (UA) Negative (Negative) Urine Ketones Negative (Negative) Urine Blood Large H (Negative) Urine Nitrite Positive (Negative) Urine Bilirubin Negative (Negative) Urine Urobilinogen <2.0 (<2.0) mg/dL Ur Leukocyte Esterase Large H (Negative) Urine RBC >182 H (0-5) /hpf Urine WBC >182 H (0-5) /hpf Urine WBC Clumps Many H (None) /hpf Urine Bacteria Occasional H (None) /hpf Urine Mucus Rare H (None) /hpf Disposition Clinical Impression: UTI (urinary tract infection), Acute kidney injury, Ureteral calculus, right Disposition: ADMITTED IP TO THIS HOSP Condition: Fair Referrals: Edwardo Park MD [Primary Care Provider] - 1-2 days Time of Disposition: 11:46
[2023-11-16 10:56] LABS: Appearance,Urine Turbid (Clear); Bacteria,Urine Occasional /hpf; Bilirubin,Urine Negative (Negative); Blood,Urine Large (Negative); Color,Urine Light Red; Glucose,Urine (UA) Negative (Negative); Ketones,Urine Negative (Negative); Leukocyte Esterase,Urine Large (Negative); Mucus,Urine Rare /hpf; Nitrite,Urine Positive (Negative); PH, Urine 6.5 (5.0-8.0); Protein,Urine 2+ (Negative); RBC,Urine >182 /hpf (0-5); Specific Gravity,Urine 1.018 (1.001-1.035); Urobilinogen,Urine <2.0 mg/dL (<2.0); WBC,Urine >182 /hpf (0-5)
[2023-11-16] MEDS: HYDROmorphone 0.5 MG/0.5 ML SYRINGE IVP STA (11:36)
[2023-11-16] MEDS ORDERED: NALOXONE 0.4 MG/ML 1 ML VIAL IV PRN (11:46)
[2023-11-16] MEDS: SODIUM CHLORIDE 0.9% 1,000 ML IV SCH (12:23)
[2023-11-16] MEDS: ACETAMINOPHEN TAB 325 MG TAB PO PRN (18:41)
--- NOTE | 2023-11-16 19:42 | P.GSHP ---
History of Present Illness H&P Date: 11/16/23 Chief Complaint: Right ureteral stone This is a 43-year-old male presented to the hospital with intractable right flank pain associated with nausea and vomiting. He also been complaining of gross hematuria with dysuria. Underwent a CT abdomen and pelvis in the ER that showed evidence of a 6 mm right-sided proximal stone with hydronephrosis, of note his urinalysis was also concerning for UTI. He did have a history of kidney stones which he has passed spontaneously in the past. He denies any fevers or chills at home. No known family history of kidney stones. His pain is currently controlled with IV pain medications. - Constitutional Constitutional: Denies chills, Denies fever - EENT Ears, nose, mouth and throat: Denies headache, Denies sore throat - Respiratory Respiratory: Denies cough, Denies 7 - Gastrointestinal Gastrointestinal: Reports abdominal pain, Reports nausea, Reports vomiting - Genitourinary (Male) Genitourinary: Reports dysuria, Reports flank pain, Reports hematuria Past Medical History Past Medical History: No Reported History Additional Past Medical History / Comment(s): 10/2023, UTI History of Any Multi-Drug Resistant Organisms: None Reported Past Surgical History: No Surgical Hx Reported Past Psychological History: No Psychological Hx Reported Smoking Status: Never smoker Past Alcohol Use History: Occasional, Rare Past Drug Use History: None Reported Medications and Allergies Home Medications Medication Instructions Recorded Confirmed Type Simvastatin [Zocor] 20 mg PO HS 11/16/23 11/16/23 History Allergies Allergy/AdvReac Type Severity Reaction Status Date / Time No Known Allergies Allergy Verified 11/16/23 11:04 Surgical - Exam Vital Signs Temp Pulse Resp BP Pulse Ox 97.8 F 56 L 18 121/81 99 11/16/23 09:15 11/16/23 09:15 11/16/23 09:15 11/16/23 09:15 11/16/23 09:15 - General no distress, moderate pain - Eyes normal ocular movement, no pale - ENT normal nares, normal mucosa - Respiratory normal expansion, normal respiratory effort - Abdomen Abdomen: soft, non tender, no distended - Psychiatric oriented to time, oriented to person, oriented to place, speech is normal Results - Labs 11/16/23 09:32 11/16/23 09:32 Abnormal Lab Results - Last 24 Hours (Table) 11/16/23 11/16/23 11/16/23 Range/Units 09:32 09:32 10:36 WBC 12.0 H (3.8-10.6) k/uL Neutrophils # 10.5 H (1.3-7.7) k/uL Lymphocytes # 0.9 L (1.0-4.8) k/uL Creatinine 1.44 H (0.66-1.25) mg/dL Glucose 126 H (74-99) mg/dL Urine Protein 2+ H (Negative) Urine Blood Large H (Negative) Ur Leukocyte Esterase Large H (Negative) Urine RBC >182 H (0-5) /hpf Urine WBC >182 H (0-5) /hpf Urine WBC Clumps Many H (None) /hpf Urine Bacteria Occasional H (None) /hpf Urine Mucus Rare H (None) /hpf Diabetes panel 11/16/23 Range/Units 09:32 Sodium 138 (137-145) mmol/L Potassium 4.3 (3.5-5.1) mmol/L Chloride 106 (98-107) mmol/L Carbon Dioxide 25 (22-30) mmol/L BUN 17 (9-20) mg/dL Creatinine 1.44 H (0.66-1.25) mg/dL Glucose 126 H (74-99) mg/dL Calcium 9.6 (8.4-10.2) mg/dL AST 27 (17-59) U/L ALT 32 (4-49) U/L Alkaline Phosphatase 78 (38-126) U/L Total Protein 7.5 (6.3-8.2) g/dL Albumin 4.3 (3.5-5.0) g/dL Calcium panel 11/16/23 Range/Units 09:32 Calcium 9.6 (8.4-10.2) mg/dL Albumin 4.3 (3.5-5.0) g/dL Pituitary panel 11/16/23 Range/Units 09:32 Sodium 138 (137-145) mmol/L Potassium 4.3 (3.5-5.1) mmol/L Chloride 106 (98-107) mmol/L Carbon Dioxide 25 (22-30) mmol/L BUN 17 (9-20) mg/dL Creatinine 1.44 H (0.66-1.25) mg/dL Glucose 126 H (74-99) mg/dL Calcium 9.6 (8.4-10.2) mg/dL Adrenal panel 11/16/23 Range/Units 09:32 Sodium 138 (137-145) mmol/L Potassium 4.3 (3.5-5.1) mmol/L Chloride 106 (98-107) mmol/L Carbon Dioxide 25 (22-30) mmol/L BUN 17 (9-20) mg/dL Creatinine 1.44 H (0.66-1.25) mg/dL Glucose 126 H (74-99) mg/dL Calcium 9.6 (8.4-10.2) mg/dL Total Bilirubin 0.6 (0.2-1.3) mg/dL AST 27 (17-59) U/L ALT 32 (4-49) U/L Alkaline Phosphatase 78 (38-126) U/L Total Protein 7.5 (6.3-8.2) g/dL Albumin 4.3 (3.5-5.0) g/dL Assessment and Plan Assessment: This is a 43-year-old male with history of a 6 mm right-sided mid ureteral stone, causing hydronephrosis intractable pain and evidence of UTI. Discussed with him given the UTI with intractable pain I do recommend proceeding with stent insertion, aware of the risk benefit and rationale of doing the surgery. Aware he will eventually require right-sided ureteroscopy with stent removal as an outpatient once his UTI resolves -NPO. past midnight -OR for cystoscopy with right-sided stent insertion tomorrow
[2023-11-16] MEDS: HYDROmorphone 0.5 MG/0.5 ML SYRINGE IVP PRN (20:33)
[2023-11-17] MEDS: ONDANSETRON 4 MG/2 ML VIAL IVP PRN (10:15)
[2023-11-17] MEDS: DEXAMETHASONE SOD PHOSPHATE 4 MG/ML 1 ML VIAL IVP STA (10:47)
[2023-11-17] MEDS: SCOPOLAMINE 1 MG/72 HR PATCH TRANSDERM STA (10:48)
[2023-11-17] MEDS: GENTAMICIN 120 MG in SODIUM CHLORIDE 0.9% 100 ML IVPB ONE (11:50)
[2023-11-17] MEDS ORDERED: fentaNYL (PF) 50 MCG/ML 2 ML AMP ONE (11:57)
[2023-11-17] MEDS ORDERED: LIDOCAINE 1% INJ 10MG/ML (20 ML MDV) ONE (11:57)
[2023-11-17] MEDS ORDERED: PROPOFOL 10 MG/ML 20 ML VIAL IV ONE (11:57)
[2023-11-17] MEDS: IV FLUID CONTINUATION 1,000 ML IV ONE (12:01)
--- NOTE | 2023-11-17 12:04 | P.PN ---
Subjective Principal diagnosis: Patient is having a temperature of 100.5 this morning, continues to have flank pain Objective - Vital Signs Vital signs: Vital Signs Temp 100.5 F H 11/17/23 10:37 Pulse 69 11/17/23 10:37 Resp 18 11/17/23 10:37 BP 146/81 11/17/23 10:37 Pulse Ox 96 11/17/23 10:37 FiO2 Intake & Output 11/16/23 11/17/23 11/17/23 18:59 06:59 18:59 Intake Total 0 Balance 0 Weight 105.233 kg Intake: IV 0 Other: Voiding Method Toilet Toilet Toilet # Voids 0 2 - Constitutional General appearance: Present: no acute distress - Gastrointestinal General gastrointestinal: Present: soft. Absent: distended, tenderness - Labs CBC & Chem 7: 11/16/23 09:32 11/16/23 09:32 Assessment and Plan Assessment: This is a 43-year-old male with history of a 6 mm right-sided mid ureteral stone, causing hydronephrosis intractable pain and evidence of UTI. Discussed with him given the UTI with intractable pain I do recommend proceeding with stent insertion, aware of the risk benefit and rationale of doing the surgery. Aware he will eventually require right-sided ureteroscopy with stent removal as an outpatient once his UTI resolves -OR for cystoscopy with right-sided stent insertion
--- NOTE | 2023-11-17 12:35 | P.OP ---
Date of Procedure: 11/17/23 Preoperative Diagnosis: Ureteral stone Postoperative Diagnosis: Same Procedure(s) Performed: Cystoscopy with right-sided stent insertion Implants: 6 Georgian by 26 cm stent in the right ureter Anesthesia: CLARISA Surgeon: Edy Ramos Estimated Blood Loss (ml): 1 Pathology: none sent Condition: stable Disposition: PACU Indications for Procedure: his is a 43-year-old male with history of a 6 mm right-sided mid ureteral stone, causing hydronephrosis intractable pain and evidence of UTI. Discussed with him given the UTI with intractable pain I do recommend proceeding with stent insertion, aware of the risk benefit and rationale of doing the surgery. Aware he will eventually require right-sided ureteroscopy with stent removal as an outpatient once his UTI resolves Operative Findings: Purulent urine was seen draining from the collecting system upon stent insertion Description of Procedure: Patient brought to the operating room, general anesthesia was induced. He was prepped and draped in sterile fashion placed in dorsolithotomy position. Cystoscopy fitted with a 21 Georgian sheath was inserted per urethra, a brief cystoscopy was performed showed no abnormality within the bladder brief cysto scopy was performed given patient's sepsis. At this time the right ureter orifice was visualized and intubated with a sensor wire. Wire was advanced under fluoroscopy into the right kidney. Next a ureteral stent was passed over the wire, the proximal curl was visualized on fluoroscopy and the distal curl was visualized using the cystoscope. Purulent urine was draining from the stent. At this time the bladder was emptied, patient was taken to recovery in stable condition
[2023-11-18 01:42] VITALS: TEMP 98.5
[2023-11-18 07:43] VITALS: BP 103/55; PULSE 62; RESP 16
[2023-11-18 08:52] LABS: Basophils # (A) 0.02 X 10*3/uL (0.00-0.10); Basophils % (A) 0.2 %; Eosinophils # (A) 0 X 10*3/uL (0.04-0.35); Eosinophils % (A) 0 %; HCT 37.5 % (39.6-50.0); HGB 12.6 g/dL (13.0-17.0); Lymphocytes % (A) 10.2 %; MCH 30.1 pg (27.0-32.0); MCHC 33.6 g/dL (32.0-37.0); MCV 89.7 FL (80.0-97.0); Mean Platelet Volume 9.4 FL (9.5-12.2); Monocytes # (A) 0.83 X 10*3/uL (0.20-1.00); Monocytes % (A) 7.7 %; NRBC Per 100 WBC 0 X 10*3/uL (0.00-0.01); Neutrophils % (A) 81.5 %; Platelet Count 203 X 10*3/uL (140-440); RBC 4.18 X 10*6/uL (4.40-5.60); RDW 12.2 % (11.5-14.5); WBC 10.79 X 10*3/uL (4.50-10.00)
[2023-11-18 09:31] LABS: BUN/Creat Ratio 14.14 Ratio (12.00-20.00); Blood Urea Nitrogen 19.8 mg/dL (9.0-27.0); Calcium 8.5 mg/dL (8.7-10.3); Carbon Dioxide 22.4 mmol/L (21.6-31.8); Chloride 104 mmol/L (96-109); Glucose 111 mg/dL (70-110); Potassium 4.3 mmol/L (3.5-5.5); Sodium 137 mmol/L (135-145)
[2023-11-18] MEDS: KETOROLAC 15 MG/ML 1 ML VIAL IVP PRN (09:55)
--- NOTE | 2023-11-18 10:35 | CDI ---
Documentation Clarification Form Date: 11/18/2023 From: Amina Pope RN CCDS Phone: [phone] Admit Date: 11/16/2023 11:48:00 AM Patient Name: Haroldo Grissom Visit Number: [id number] Discharge Date: ATTENTION: The Clinical Documentation Specialists (CDI) and [facility] Coding Staff appreciate your assistance in clarifying documentation. Please respond to the clarification below the line at the bottom and electronically sign. The CDI & [facility] Coding staff will review the response and follow-up if needed. Please note: Queries are made part of the Legal Health Record. If you have any questions, please contact the author of this message via ITS. Doctor/Provider: Edy Ramos MD: Sepsis is documented in the Operative Note 11/16 which may lack sufficient clinical evidence/support in the medical record. Additional clarification is requested. History/Risk Factors: 43-year-old male with a history of kidney stones who presented with intractable right flank pain, nausea and vomiting and found to have hydronephrosis with 6mm right sided proximal stone and UTI Clinical Indicators: 11/15 Triage VS: 121/81, 97.8, 56, 18, 99% room air 11/15-11/17 Temperature max: 100.5 on 11/16 (temps ranged from 97.8-100.4 on 11/15) 11/16 Operative Note, Operative Findings: "Purulent urine was seen draining from the collecting system upon stent insertion." 11/15 and 11/17 WBC: 12.0, 10.79 11/15 Urinalysis: Color: Light red, Appearance: Turbid, Protein: 2+, Blood: Large, Leukocyte esterase: Large, RBC: >182, WBC: >182, Bacteria: Occasional, Mucus: Rare Treatment: Stent insertion Rocephin 2gram IV once 11/15 the [id number] start 11/16 Gentamycin 120mg IV once 11/16 Normal Saline 1000cc IV bolus once 11/15 Please clarify if Sepsis is a valid diagnosis? [ ] No, Sepsis is ruled out [X ] Yes, Sepsis is POA and is present as evidenced by patient had an obstructive stone, and UTI as the cause of his sepsis [ ] Yes, Sepsis developed during admission as evidenced by: [ ] Other (please specify diagnosis) [ ] Unable to determine MTDD
--- NOTE | 2023-11-18 21:57 | P.DS ---
Providers Date of admission: 11/16/23 11:48 Attending physician: Edy Ramos MD Primary care physician: Edwardo [facility] Hospital Course: This is a 43-year-old male presented to the hospital on November 15 with intractable pain and a UTI secondary to a right ureteral stone, patient also had a low-grade fever. Patient was taken to the OR on November 16 for stent insertion, he was continued on IV antibiotics during the admission. He was discharged home on November 17 with Ceftin for 5a 10-day course. He was advised he will undergo go right-sided ureteroscopy with holmium laser and stent removal as an outpatient once his UTI resolves. At time of discharge he was tolerating a diet, ambulating, pain was controlled Patient Condition at Discharge: Fair Plan - Discharge Summary New Discharge Prescriptions: New Tamsulosin [Flomax] 0.4 mg PO DAILY #30 cap cefUROXime axetiL [Ceftin] 500 mg PO BID 10 Days #20 tab Ketorolac [Toradol] 10 mg PO Q6HR PRN #15 tab PRN Reason: Pain No Action Simvastatin [Zocor] 20 mg PO HS Discharge Medication List Simvastatin [Zocor] 20 mg PO HS 11/16/23 [History] Ketorolac [Toradol] 10 mg PO Q6HR PRN #15 tab 11/18/23 [Rx] Tamsulosin [Flomax] 0.4 mg PO DAILY #30 cap 11/18/23 [Rx] cefUROXime axetiL [Ceftin] 500 mg PO BID 10 Days #20 tab 11/18/23 [Rx] Follow up Appointment(s)/Referral(s): Edwardo Park MD [Primary Care Provider] - 1-2 days (office busy at time of discharge Please call to schedule appointment ) Edy Ramos MD [STAFF PHYSICIAN] - 3 Weeks (Office will call you to set up time for stent removal) Patient Instructions/Handouts: *Surgery [facility] - (Anesthesia) Discharge Instructions Outpatient Surgery, *Surgery [facility] - Scopalamine Patch Instructions, Cystoscopy (DC) Discharge Disposition: HOME SELF-CARE
--- NOTE | 2023-12-15 10:35 | FL ---
EXAMINATION TYPE: FL guidance operating room DATE OF EXAM: 11/17/2023 12:49 PM COMPARISON: Pre Operative Images if available both CT/MRI or plain film CLINICAL INDICATION: Male, 43 years old with history of CYSTOSCOPY; TECHNIQUE: FL guidance operating room, multiple fluoroscopic images provided for procedure. Total fluoroscopy time: 2 seconds Total submitted images to PACS: 5 DAP: 0.2974 mGym2 Gycm2 uGym2 cGycm2 or equivalent. FINDINGS: Multiple intraoperative fluoroscopic images were taken resulting in ureteral stent placement with sup erior pigtail in appropriate position projecting over the renal pelvis. No immediate intraoperative c omplication. Multilevel degeneration changes throughout the spine. IMPRESSION: 1. No evidence for intraoperative complication. 2. Please see the operative/procedural note for further details. [facility], , 12/15/2023 10:33 AM
== END 2023-11-18 12:38 | disposition home or self-care (01) | DRG 854 ==
LOC: EC 09:09 → 4SSUR 11:48
PROVIDERS: ADMIT Urology; ATTEND Urology
PROC: 0T768DZ Dilation of Right Ureter with Intraluminal Device, Via Natural or Artificial Opening Endoscopic (ICD-10-PCS; principal; 2023-11-17 12:00)
DX: A41.9 Sepsis, unspecified organism (principal); N13.6 Pyonephrosis; N20.1 Calculus of ureter; N17.9 Acute kidney failure, unspecified; R31.0 Gross hematuria; Z87.442 Personal history of urinary calculi
CPT/HCPCS: 36415; 74176; 80048; 80053; 81001; 83690; 85025; 87040; 96361; 96365; 96375; 99285

== ENCOUNTER 2023-12-04 08:24 | Inpatient (IN) | payer BC ==
--- NOTE | 2023-12-04 08:52 | ED ---
General Adult HPI - General Chief complaint: Urogenital Stated complaint: urinary stent issues Time Seen by Provider: 12/04/23 08:37 Source: patient, RN notes reviewed, old records reviewed Mode of arrival: ambulatory Limitations: no limitations - History of Present Illness Initial comments: 43 year old male presents to the emergency department with chief complaint of fever and urinary frequency x3 days. Recently diagnosed with infected right kidney stone with urinary stent placement and antibiotics. Patient states that he stopped antibiotics a few days ago. He is due to have surgery in December with Dr. Coronado along with stent removal. This morning he woke up with a fever; he also reports flank pain, frequency, minimal output with no hematuria or significant abdominal pain. - Related Data Home Medications Medication Instructions Recorded Confirmed Simvastatin [Zocor] 20 mg PO HS 11/16/23 12/04/23 Previous Rx's Medication Instructions Recorded Ketorolac [Toradol] 10 mg PO Q6HR PRN #15 tab 11/18/23 Tamsulosin [Flomax] 0.4 mg PO DAILY #30 cap 11/18/23 Allergies Allergy/AdvReac Type Severity Reaction Status Date / Time No Known Allergies Allergy Verified 12/04/23 10:28 Review of Systems ROS Statement: Those systems with pertinent positive or pertinent negative responses have been documented in the HPI. ROS Other: All systems not noted in ROS Statement are negative. Past Medical History Past Medical History: No Reported History Additional Past Medical History / Comment(s): 10/2023, UTI History of Any Multi-Drug Resistant Organisms: None Reported Past Surgical History: No Surgical Hx Reported Past Psychological History: No Psychological Hx Reported Smoking Status: Never smoker Past Alcohol Use History: Occasional, Rare Past Drug Use History: None Reported General Exam Limitations: no limitations General appearance: alert, in no apparent distress Head exam: Present: atraumatic, normocephalic, normal inspection Eye exam: Present: normal appearance, PERRL, EOMI. Absent: scleral icterus, conjunctival injection, periorbital swelling ENT exam: Present: normal exam, mucous membranes moist Neck exam: Present: normal inspection. Absent: tenderness, meningismus, lymph adenopathy Respiratory exam: Present: normal lung sounds bilaterally. Absent: respiratory distress, wheezes, rales, rhonchi, stridor Cardiovascular Exam: Present: regular rate, normal rhythm, normal heart sounds. Absent: systolic murmur, diastolic murmur, rubs, gallop, clicks GI/Abdominal exam: Present: soft, normal bowel sounds. Absent: distended, tenderness, guarding, rebound, rigid Expanded GI/Abdominal exam: Present: other (right CVA tenderness ) Extremities exam: Present: normal inspection, full ROM, normal capillary refill. Absent: tenderness, pedal edema, joint swelling, calf tenderness Back exam: Present: normal inspection, CVA tenderness (R) Neurological exam: Present: alert, oriented X3, CN II-XII intact Skin exam: Present: warm, dry, intact, normal color. Absent: rash Course Vital Signs 12/04/23 12/04/23 12/04/23 08:29 08:35 11:02 Temperature 98.9 F 100.4 F H 97.2 F L Pulse Rate 77 59 L Respiratory 18 16 Rate Blood Pressure 115/74 127/67 O2 Sat by Pulse 99 99 Oximetry Medical Decision Making - Medical Decision Making Was pt. sent in by a medical professional or institution (, PA, HORTICULTURAL FARMER, urgent care, hospital, or fpc...) When possible be specific @ -No Did you speak to anyone other than the patient for history (EMS, parent, family, police, friend...)? What history was obtained from this source @ -No Did you review nursing and triage notes (agree or disagree)? Why? @ -I reviewed and agree with nursing and triage notes Were old charts reviewed (outside hosp., previous admission, EMS record, old EKG, old radiological studies, urgent care reports/EKG's, fpc records)? Report findings @ -Reviewed prior inpatient records CBC comp stent placement Differential Diagnosis (chest pain, altered mental status, abdominal pain women, abdominal pain men, vaginal bleeding, weakness, fever, dyspnea, syncope, headache, dizziness, GI bleed, back pain, seizure, CVA, palpatations, mental health, musculoskeletal)? @ -[Differential Abdominal Pain Women: Appendicitis, Cholecystitis, diverticulosis, ischemic bowel, pancreatitis, hepatitis, UTI, gastroenteritis, AAA, incarcerated hernia, bowel obstruction, constipation, inflammatory bowel, hepatitis, peptic ulcer disease, splenic infarction, perforated viscus, vulvitis, ovarian torsion, PID, kidney stone, placenta abruption, this is not meant to be an all-inclusive list EKG interpreted by me (3pts min.). @ -None X-rays interpreted by me (1pt min.). @ -X-ray KUB shows proper stent placement no other acute process CT interpreted by me (1pt min.). @ -None done U/S interpreted by me (1pt. min.). @ -None done What testing was considered but not performed or refused? (CT, X-rays, U/S, labs)? Why? @ -None What meds were considered but not given or refused? Why? @ -None Did you discuss the management of the patient with other professionals (professionals i.e. , PA, HORTICULTURAL FARMER, lab, RT, psych nurse, professor of social work, grout machine operator, teacher, state patrol officer, comp field case manager)? Give summary @ -Urology regarding stent, current infection and concern for recurrent pyelonephritis infected stone. Sound for admission Was smoking cessation discussed for >3mins.? @ -No Was critical care preformed (if so, how long)? @ -No Were there social determinants of health that impacted care today? How? (Homelessness, low income, unemployed, alcoholism, drug addiction, transportation, low edu. Level, literacy, decrease access to med. care, skilled nursing, rehab)? @ -No Was there de-escalation of care discussed even if they declined (Discuss DNR or withdrawal of care, Hospice)? DNR status @ -No What co-morbidities impacted this encounter? (DM, HTN, Smoking, COPD, CAD, Cancer, CVA, ARF, Chemo, Hep., AIDS, mental health diagnosis, sleep apnea, morbid obesity)? @ -None Was patient admitted / discharged? Hospital course, mention meds given and route, prescriptions, significant lab abnormalities, going to OR and other pertinent info. @ -Admitted patient found to have UTI, pyelonephritis, has current ureteral stent and along with kidney stone. Patient will be admitted for IV antibiotics and further treatment management. Undiagnosed new problem with uncertain prognosis? @ -No Drug Therapy requiring intensive monitoring for toxicity (Heparin, Nitro, Insulin, Cardizem)? @ -No Were any procedures done? @ -No Diagnosis/symptom? @ -Pyelonephritis, UTI, proximal ureteral stone, ureteral stent Acute, or Chronic, or Acute on Chronic? @ -Acute Uncomplicated (without systemic symptoms) or Complicated (systemic symptoms)? @ -Complicated Side effects of treatment? @ -No Exacerbation, Progression, or Severe Exacerbation? @ -No Poses a threat to life or bodily function? How? (Chest pain, [place], [place], pneumonia, PE, COPD, DKA, ARF, appy, cholecystitis, CVA, Diverticulitis, Homicidal, Suicidal, threat to staff... and all critical care pts) @ -Yes sepsis, endorgan failure - Lab Data Result diagrams: 12/04/23 09:03 12/04/23 09:03 Lab Results 12/04/23 12/04/23 12/04/23 Range/Units 09:03 09:03 09:03 WBC 12.3 H (3.8-10.6) k/uL RBC 4.80 (4.30-5.90) m/uL Hgb 14.3 (13.0-17.5) gm/dL Hct 42.0 (39.0-53.0) % MCV 87.5 (80.0-100.0) fL MCH 29.7 (25.0-35.0) pg MCHC 34.0 (31.0-37.0) g/dL RDW 12.6 (11.5-15.5) % Plt Count 305 (150-450) k/uL MPV 7.1 Neutrophils % 84 % Lymphocytes % 8 % Monocytes % 5 % Eosinophils % 2 % Basophils % 0 % Neutrophils # 10.3 H (1.3-7.7) k/uL Lymphocytes # 1.0 (1.0-4.8) k/uL Monocytes # 0.6 (0-1.0) k/uL Eosinophils # 0.3 (0-0.7) k/uL Basophils # 0.0 (0-0.2) k/uL Sodium 137 (137-145) mmol/L Potassium 4.1 (3.5-5.1) mmol/L Chloride 106 (98-107) mmol/L Carbon Dioxide 23 (22-30) mmol/L Anion Gap 8 mmol/L BUN 23 H (9-20) mg/dL Creatinine 1.26 H (0.66-1.25) mg/dL Est GFR (CKD-EPI)AfAm 81 (>60 ml/min/1.73 sqM) Est GFR (CKD-EPI)NonAf 70 (>60 ml/min/1.73 sqM) Glucose 103 H (74-99) mg/dL Plasma Lactic Acid Rafa (0.7-2.0) mmol/L Calcium 9.7 (8.4-10.2) mg/dL Total Bilirubin 1.5 H (0.2-1.3) mg/dL AST 27 (17-59) U/L ALT 31 (4-49) U/L Alkaline Phosphatase 78 (38-126) U/L Total Protein 7.4 (6.3-8.2) g/dL Albumin 4.3 (3.5-5.0) g/dL Lipase 36 (23-300) U/L Urine Color Yellow Urine Appearance Cloudy (Clear) Urine pH 5.5 (5.0-8.0) Ur Specific [place] 1.029 (1.001-1.035) Urine Protein 1+ H (Negative) Urine Glucose (UA) Negative (Negative) Urine Ketones Negative (Negative) Urine Blood Large H (Negative) Urine Nitrite Positive (Negative) Urine Bilirubin Negative (Negative) Urine Urobilinogen <2.0 (<2.0) mg/dL Ur Leukocyte Esterase Large H (Negative) Urine RBC >182 H (0-5) /hpf Urine WBC >182 H (0-5) /hpf Urine WBC Clumps Few H (None) /hpf Ur Squamous Epith Cells 1 (0-4) /hpf Urine Bacteria Many H (None) /hpf Urine Mucus Moderate H (None) /hpf 12/04/23 Range/Units 09:03 WBC (3.8-10.6) k/uL RBC (4.30-5.90) m/uL Hgb (13.0-17.5) gm/dL Hct (39.0-53.0) % MCV (80.0-100.0) fL MCH (25.0-35.0) pg MCHC (31.0-37.0) g/dL RDW (11.5-15.5) % Plt Count (150-450) k/uL MPV Neutrophils % % Lymphocytes % % Monocytes % % Eosinophils % % Basophils % % Neutrophils # (1.3-7.7) k/uL Lymphocytes # (1.0-4.8) k/uL Monocytes # (0-1.0) k/uL Eosinophils # (0-0.7) k/uL Basophils # (0-0.2) k/uL Sodium (137-145) mmol/L Potassium (3.5-5.1) mmol/L Chloride (98-107) mmol/L Carbon Dioxide (22-30) mmol/L Anion Gap mmol/L BUN (9-20) mg/dL Creatinine (0.66-1.25) mg/dL Est GFR (CKD-EPI)AfAm (>60 ml/min/1.73 sqM) Est GFR (CKD-EPI)NonAf (>60 ml/min/1.73 sqM) Glucose (74-99) mg/dL Plasma Lactic Acid Rafa 0.9 (0.7-2.0) mmol/L Calcium (8.4-10.2) mg/dL Total Bilirubin (0.2-1.3) mg/dL AST (17-59) U/L ALT (4-49) U/L Alkaline Phosphatase (38-126) U/L Total Protein (6.3-8.2) g/dL Albumin (3.5-5.0) g/dL Lipase (23-300) U/L Urine Color Urine Appearance (Clear) Urine pH (5.0-8.0) Ur Specific [place] (1.001-1.035) Urine Protein (Negative) Urine Glucose (UA) (Negative) Urine Ketones (Negative) Urine Blood (Negative) Urine Nitrite (Negative) Urine Bilirubin (Negative) Urine Urobilinogen (<2.0) mg/dL Ur Leukocyte Esterase (Negative) Urine RBC (0-5) /hpf Urine WBC (0-5) /hpf Urine WBC Clumps (None) /hpf Ur Squamous Epith Cells (0-4) /hpf Urine Bacteria (None) /hpf Urine Mucus (None) /hpf Disposition Clinical Impression: Ureteral calculus, right, Pyelonephritis, UTI (urinary tract infection), Ureteral stent present Disposition: ADMITTED IP TO THIS HOSP Condition: Fair Time of Disposition: 10:01
[2023-12-04] MEDS: SODIUM CHLORIDE 0.9% 1,000 ML IV STA (08:57)
[2023-12-04] MEDS: SODIUM CHLORIDE 0.9% 500 ML 500 ML IV STA (08:57)
[2023-12-04] MEDS: ACETAMINOPHEN TAB 500 MG TAB PO STA (08:58)
[2023-12-04 09:11] LABS: Basophils % (A) 0 %; Eosinophils # (A) 0.3 k/uL (0-0.7); Eosinophils % (A) 2 %; HGB 14.3 gm/dL (13.0-17.5); Lymphocytes % (A) 8 %; MCH 29.7 pg (25.0-35.0); MCV 87.5 fL (80.0-100.0); Mean Platelet Volume 7.1; Monocytes # (A) 0.6 k/uL (0-1.0); Monocytes % (A) 5 %; Neutrophils # (A) 10.3 k/uL (1.3-7.7); Neutrophils % (A) 84 %; Platelet Count 305 k/uL (150-450); RDW 12.6 % (11.5-15.5); WBC 12.3 k/uL (3.8-10.6)
[2023-12-04 09:24] LABS: ALT 31 U/L (4-49); AST 27 U/L (17-59); African American GFR (CKD) 81 (>60 ml/min/1.73 sqM); Albumin 4.3 g/dL (3.5-5.0); Alkaline Phosphatase 78 U/L (38-126); Anion Gap 8 mmol/L; Blood Urea Nitrogen 23 mg/dL (9-20); Calcium 9.7 mg/dL (8.4-10.2); Carbon Dioxide 23 mmol/L (22-30); Chloride 106 mmol/L (98-107); Glucose 103 mg/dL (74-99); Lipase 36 U/L (23-300); Non-African American GFR(CKD) 70 (>60 ml/min/1.73 sqM); Potassium 4.1 mmol/L (3.5-5.1); Sodium 137 mmol/L (137-145); Total Bilirubin 1.5 mg/dL (0.2-1.3); Total Protein 7.4 g/dL (6.3-8.2)
[2023-12-04 09:38] LABS: Appearance,Urine Cloudy (Clear); Bacteria,Urine Many /hpf; Bilirubin,Urine Negative (Negative); Blood,Urine Large (Negative); Color,Urine Yellow; Glucose,Urine (UA) Negative (Negative); Ketones,Urine Negative (Negative); Leukocyte Esterase,Urine Large (Negative); Mucus,Urine Moderate /hpf; Nitrite,Urine Positive (Negative); PH, Urine 5.5 (5.0-8.0); Protein,Urine 1+ (Negative); RBC,Urine >182 /hpf (0-5); Specific Gravity,Urine 1.029 (1.001-1.035); Squamous Epithelial Cell,Urine 1 /hpf (0-4); Urobilinogen,Urine <2.0 mg/dL (<2.0); WBC,Urine >182 /hpf (0-5)
[2023-12-04] MEDS ORDERED: HYDROmorphone 0.5 MG/0.5 ML SYRINGE IVP PRN (10:02)
[2023-12-04] MEDS ORDERED: HYDROcodone/APAP 5-325MG 1 EACH TAB PO PRN (10:02)
[2023-12-04] MEDS ORDERED: ONDANSETRON 4 MG/2 ML VIAL IVP PRN (10:02)
[2023-12-04] MEDS ORDERED: NALOXONE 0.4 MG/ML 1 ML VIAL IV PRN (10:02)
--- NOTE | 2023-12-04 10:10 | XR ---
EXAMINATION TYPE: XR KUB DATE OF EXAM: 12/04/2023 COMPARISON: 09/04/2016 HISTORY: Stent placement TECHNIQUE: AP abdomen FINDINGS: There is a stent in the right ureteral region. No renal stones are identified. No ureteral stones are identified. Bowel gas is nonspecific with small bowel gas as well as colon. No mass effect is evident. Psoas koki ins are normal. Organomegaly is not evident. Osseous structures appear normal. IMPRESSION: 1. Right ureteral stent [facility] Fabián Mann, , 12/04/2023 10:07 AM
[2023-12-04] MEDS: SODIUM CHLORIDE 0.9% 1,000 ML IV SCH (10:20)
--- NOTE | 2023-12-04 11:26 | P.HPIM ---
History of Present Illness H&P Date: 12/04/23 History of Presenting Illness: Patient is a pleasant 43-year-old male with a past medical history of hyperlipidemia and kidney stones. He was recently hospitalized secondary to right flank and back pain which resulted in diagnosis of UTI and right ureteral stone. He underwent cystoscopy with right-sided stent insertion on 11/16/23 and discharged home on oral antibiotics with Ceftin. Patient reports full completion of antibiotic course but reports over the past few days he began noticing urinary frequency, urgency, and dysuria and today woke up with a fever so he called his urologist, Dr. Ramos and was instructed to come to the emergency department as he will need to be admitted for IV antibiotics. Patient currently reports new onset fever accompanied by mild lower back pain, urinary frequency, urgency, and dysuria. He denies hematuria, flank pain, or suprapubic pain. He denies having any nausea, vomiting, headache, lightheadedness, dizzin ess, chest pain, palpitations, shortness of breath, or any other complaints at this time. Upon arrival to our facility, patient underwent evaluation in the emergency department. Vital signs upon arrival show blood pressure 115/74, heart rate 77, respiratory rate 18, temp 100.4 F, and SpO2 of 99% on room air. Labs completed and reviewed. CBC showing leukocytosis with WBC count of 12.3. BMP showing slightly elevated but stable renal function with BUN of 23, creatinine of 1.26, GFR of 70 with baseline creatinine of 1.4. Lactic acid was 0.9. Liver profile showing hyperbilirubinemia with total bili of 1.5 otherwise normal findings. Urinalysis was positive for protein, blood, leukocyte es terase, greater than 182 RBCs and greater than 182 WBCs. Patient started on IV antibiotics with Rocephin. KUB was completed showing right ureteral stent in place with no reported renal stones identified. Urine culture and blood culture sent to lab for analysis and patient admitted under our services with consultation to urology. Review of systems: Pertinent positives and negatives as discussed in HPI, a complete review of systems was performed and all other systems are negative. Physical exam: Vital signs reviewed and stable. General: Nontoxic, no distress and appears stated age. Derm: Skin warm and dry, normal coloration for ethnicity. Head: Atraumatic, normocephalic and symmetric. Eyes: EOM's intact, no lid lag, and anicteric sclera Mouth: no lip lesions, mucus membranes moist Cardiovascular: regular rate and rhythm with normal S1S2, no murmur, positive posterior tibial pulses bilaterally, and cap refill < 2 seconds. Lungs: Respirations even, regular, and unlabored on room air. Lungs CTA bilaterally, no rhonchi, no rales, no wheezing, and no accessory muscle usage. Abdominal: soft, nontender to palpation, no guarding, no appreciable organomegaly Ext: ROM intact. No gross muscle atrophy, no edema, no contractures Neuro: Speech clear, face symmetrical and CN II-XII grossly intact with no noted focal neuro deficits Psych: Alert and oriented to person, place, time, and situation. Appropriate and pleasant affect. Assessment and Plan of Care: Acute cystitis Right ureteral stone Sepsis upon arrival secondary to above -Continue IV antibiotics with Rocephin 2 g daily. -Follow-up on urine and blood cultures. -Urology consulted, appreciate recommendations -Continue gentle IV fluid hydration with 0.9% normal saline at 75 cc/h. -Order placed for bladder management to monitor for postvoid residual/urinary retention. -Continue Flomax 0.4 mg daily. -Symptomatic care and pain management with Tylenol 650 mg p.o. every 6 hours as needed for mild pain/fever, Toradol 15 mg IVP every 6 hours as needed for moderate pain, and Dilaudid 0.5 mg every 3 hours as needed for severe pain. -Continue to monitor renal function closely with repeat a.m. labs. Hyperlipidemia -Continue daily medication regimen with atorvastatin 10 mg nightly. Data and imaging reviewed: As stated above in HPI CODE STATUS: Full Code DVT prophylaxis: Lovenox Anticipated discharge date: Pending clinical course Anticipated discharge place: Home Patient was seen independently by Nurse Practitioner. This document was prepared using [employer] dictation software. Please allow for errors in community health planning director while rare they do occur. . Past Medical History Past Medical History: No Reported History Additional Past Medical History / Comment(s): 10/2023, UTI History of Any Multi-Drug Resistant Organisms: None Reported Past Surgical History: No Surgical Hx Reported Past Psychological History: No Psychological Hx Reported Smoking Status: Never smoker Past Alcohol Use History: Occasional, Rare Past Drug Use History: None Reported Medications and Allergies Home Medications Medication Instructions Recorded Confirmed Type Simvastatin [Zocor] 20 mg PO HS 11/16/23 12/04/23 History Ketorolac [Toradol] 10 mg PO Q6HR PRN #15 tab 11/18/23 12/04/23 Rx Tamsulosin [Flomax] 0.4 mg PO DAILY #30 cap 11/18/23 12/04/23 Rx Allergies Allergy/AdvReac Type Severity Reaction Status Date / Time No Known Allergies Allergy Verified 12/04/23 10:28 Physical Exam Vitals: Vital Signs Temp Pulse Resp BP Pulse Ox 12/04/23 08:35 100.4 F H 12/04/23 08:29 98.9 F 77 18 115/74 99 Intake and Output 12/03/23 12/04/23 12/04/23 22:59 06:59 14:59 Other: Voiding Method Toilet Weight 105.233 kg Results CBC & Chem 7: 12/04/23 09:03 12/04/23 09:03 Labs: Abnormal Lab Results - Last 24 Hours (Table) 12/04/23 12/04/23 12/04/23 Range/Units 09:03 09:03 09:03 WBC 12.3 H (3.8-10.6) k/uL Neutrophils # 10.3 H (1.3-7.7) k/uL BUN 23 H (9-20) mg/dL Creatinine 1.26 H (0.66-1.25) mg/dL Glucose 103 H (74-99) mg/dL Total Bilirubin 1.5 H (0.2-1.3) mg/dL Urine Protein 1+ H (Negative) Urine Blood Large H (Negative) Ur Leukocyte Esterase Large H (Negative) Urine RBC >182 H (0-5) /hpf Urine WBC >182 H (0-5) /hpf Urine WBC Clumps Few H (None) /hpf Urine Bacteria Many H (None) /hpf Urine Mucus Moderate H (None) /hpf
[2023-12-04] MEDS: ACETAMINOPHEN TAB 325 MG TAB PO PRN (15:01)
[2023-12-04] MEDS: KETOROLAC 15 MG/ML 1 ML VIAL IVP PRN (15:01)
[2023-12-04] MEDS: ATORVASTATIN 10 MG TAB PO SCH (21:00)
[2023-12-05] MEDS: ENOXAPARIN 40 MG/0.4 ML SYRINGE SQ SCH (07:38)
[2023-12-05] MEDS: TAMSULOSIN 0.4 MG CAP.ER.24H PO SCH (07:39)
[2023-12-05 11:27] LABS: Basophils # (A) 0.1 k/uL (0-0.2); Basophils % (A) 1 %; Eosinophils % (A) 0 %; HCT 36.9 % (39.0-53.0); HGB 12.1 gm/dL (13.0-17.5); Lymphocytes # (A) 1.2 k/uL (1.0-4.8); Lymphocytes % (A) 11 %; MCH 29.4 pg (25.0-35.0); MCHC 32.9 g/dL (31.0-37.0); MCV 89.4 fL (80.0-100.0); Mean Platelet Volume 6.8; Monocytes # (A) 0.6 k/uL (0-1.0); Monocytes % (A) 6 %; Neutrophils # (A) 8.1 k/uL (1.3-7.7); Neutrophils % (A) 80 %; Platelet Count 267 k/uL (150-450); RBC 4.13 m/uL (4.30-5.90); RDW 12.2 % (11.5-15.5); WBC 10.1 k/uL (3.8-10.6)
[2023-12-05 11:41] LABS: ALT 20 U/L (4-49); AST 19 U/L (17-59); African American GFR (CKD) 80 (>60 ml/min/1.73 sqM); Albumin 3.3 g/dL (3.5-5.0); Albumin/Globulin Ratio 1.1; Alkaline Phosphatase 58 U/L (38-126); Anion Gap 5 mmol/L; Blood Urea Nitrogen 17 mg/dL (9-20); Calcium 8.8 mg/dL (8.4-10.2); Carbon Dioxide 24 mmol/L (22-30); Chloride 107 mmol/L (98-107); Globulin 2.9 g/dL; Glucose 107 mg/dL (74-99); Magnesium 1.9 mg/dL (1.6-2.3); Non-African American GFR(CKD) 69 (>60 ml/min/1.73 sqM); Potassium 3.9 mmol/L (3.5-5.1); Sodium 136 mmol/L (137-145); Total Bilirubin 0.7 mg/dL (0.2-1.3); Total Protein 6.2 g/dL (6.3-8.2)
--- NOTE | 2023-12-05 15:05 | P.GSCN ---
History of Present Illness Consult date: 12/04/23 Reason for Consult: Ureteral stone, UTI History of present illness: This is a 43-year-old male status post right-sided stent insertion for septic stone on November 16. Recently completed his antibiotics. But started developing a low-grade fever with urinary frequency and dysuria. Underwent a KUB in the ER which showed the stent to be in the location. Urinalysis is consistent with a UTI. He is tentatively scheduled for right-sided ureteroscopy with holmium laser and stent removal next month. Review of Systems - Constitutional Reports chills, Reports fever - EENT Ears, nose, mouth and throat: Denies dysphagia - Cardiovascular Denies chest pain, Denies shortness of breath - Gastrointestinal Reports abdominal pain, Denies nausea, Denies vomiting Past Medical History Past Medical History: No Reported History Additional Past Medical History / Comment(s): 10/2023, UTI History of Any Multi-Drug Resistant Organisms: None Reported Past Surgical History: No Surgical Hx Reported Past Psychological History: No Psychological Hx Reported Smoking Status: Never smoker Past Alcohol Use History: Occasional, Rare Past Drug Use History: None Reported Medications and Allergies Home Medications Medication Instructions Recorded Confirmed Type Simvastatin [Zocor] 20 mg PO HS 11/16/23 11/17/23 History Ketorolac [Toradol] 10 mg PO Q6HR PRN #15 tab 11/18/23 Rx Tamsulosin [Flomax] 0.4 mg PO DAILY #30 cap 11/18/23 Rx cefUROXime axetiL [Ceftin] 500 mg PO BID 10 Days #20 tab 11/18/23 Rx Allergies Allergy/AdvReac Type Severity Reaction Status Date / Time No Known Allergies Allergy Verified 12/04/23 08:34 Surgical - Exam Vital Signs Temp Pulse Resp BP Pulse Ox 98.9 F 77 18 115/74 99 12/04/23 08:29 12/04/23 08:29 12/04/23 08:29 12/04/23 08:29 12/04/23 08:29 - General no distress, moderate pain - Eyes normal ocular movement, no pale - ENT normal nares, normal mucosa - Respiratory normal expansion, normal respiratory effort - Abdomen Abdomen: soft, non tender - Psychiatric oriented to time, oriented to person, oriented to place Results - Labs 12/04/23 09:03 12/04/23 09:03 Abnormal Lab Results - Last 24 Hours (Table) 12/04/23 12/04/23 12/04/23 Range/Units 09:03 09:03 09:03 WBC 12.3 H (3.8-10.6) k/uL Neutrophils # 10.3 H (1.3-7.7) k/uL BUN 23 H (9-20) mg/dL Creatinine 1.26 H (0.66-1.25) mg/dL Glucose 103 H (74-99) mg/dL Total Bilirubin 1.5 H (0.2-1.3) mg/dL Urine Protein 1+ H (Negative) Urine Blood Large H (Negative) Ur Leukocyte Esterase Large H (Negative) Urine RBC >182 H (0-5) /hpf Urine WBC >182 H (0-5) /hpf Urine WBC Clumps Few H (None) /hpf Urine Bacteria Many H (None) /hpf Urine Mucus Moderate H (None) /hpf Diabetes panel 12/04/23 Range/Units 09:03 Sodium 137 (137-145) mmol/L Potassium 4.1 (3.5-5.1) mmol/L Chloride 106 (98-107) mmol/L Carbon Dioxide 23 (22-30) mmol/L BUN 23 H (9-20) mg/dL Creatinine 1.26 H (0.66-1.25) mg/dL Glucose 103 H (74-99) mg/dL Calcium 9.7 (8.4-10.2) mg/dL AST 27 (17-59) U/L ALT 31 (4-49) U/L Alkaline Phosphatase 78 (38-126) U/L Total Protein 7.4 (6.3-8.2) g/dL Albumin 4.3 (3.5-5.0) g/dL Calcium panel 12/04/23 Range/Units 09:03 Calcium 9.7 (8.4-10.2) mg/dL Albumin 4.3 (3.5-5.0) g/dL Pituitary panel 12/04/23 Range/Units 09:03 Sodium 137 (137-145) mmol/L Potassium 4.1 (3.5-5.1) mmol/L Chloride 106 (98-107) mmol/L Carbon Dioxide 23 (22-30) mmol/L BUN 23 H (9-20) mg/dL Creatinine 1.26 H (0.66-1.25) mg/dL Glucose 103 H (74-99) mg/dL Calcium 9.7 (8.4-10.2) mg/dL Adrenal panel 12/04/23 Range/Units 09:03 Sodium 137 (137-145) mmol/L Potassium 4.1 (3.5-5.1) mmol/L Chloride 106 (98-107) mmol/L Carbon Dioxide 23 (22-30) mmol/L BUN 23 H (9-20) mg/dL Creatinine 1.26 H (0.66-1.25) mg/dL Glucose 103 H (74-99) mg/dL Calcium 9.7 (8.4-10.2) mg/dL Total Bilirubin 1.5 H (0.2-1.3) mg/dL AST 27 (17-59) U/L ALT 31 (4-49) U/L Alkaline Phosphatase 78 (38-126) U/L Total Protein 7.4 (6.3-8.2) g/dL Albumin 4.3 (3.5-5.0) g/dL Assessment and Plan Assessment: 43-year-old male status post right-sided stent insertion on November 16 for septic stone. Presents back with a UTI. I reviewed his KUB the stent is in a good location, at this point no further surgical intervention from urology standpoint, recommend keeping the hospital until urine culture is finalized I did discuss with him at this point we will keep his tentative surgery date for December 19.
--- NOTE | 2023-12-05 15:36 | P.PN ---
Subjective Progress Note Date: 12/05/23 Hospital course:: Patient is a pleasant 43-year-old male with a past medical history of hyperlipidemia and kidney stones. He was recently hospitalized secondary to right flank and back pain which resulted in diagnosis of UTI and right ureteral stone. He underwent cystoscopy with right-sided stent insertion on 11/16/23 and discharged home on oral antibiotics with Ceftin. Patient reports full completion of antibiotic course but reports over the past few days he began noticing urinary frequency, urgency, and dysuria and today woke up with a fever so he called his urologist, Dr. Ramos and was instructed to come to the emergency department as he will need to be admitted for IV antibiotics. Patient currently reports new onset fever accompanied by mild lower back pain, urinary frequency, urgency, and dysuria. He denies hematuria, flank pain, or suprapubic pain. He denies having any nausea, vomiting, headache, lightheadedness, dizziness, chest pain, palpitations, shortness of breath, or any other complaints at this time. Upon arrival to our facility, patient underwent evaluation in the emergency department. Vital signs upon arrival show blood pre ssure 115/74, heart rate 77, respiratory rate 18, temp 100.4 F, and SpO2 of 99% on room air. Labs completed and reviewed. CBC showing leukocytosis with WBC count of 12.3. BMP showing slightly elevated but stable renal function with BUN of 23, creatinine of 1.26, GFR of 70 with baseline creatinine of 1.4. Lactic acid was 0.9. Liver profile showing hyperbilirubinemia with total bili of 1.5 otherwise normal findings. Urinalysis was positive for protein, blood, leukocyte esterase, greater than 182 RBCs and greater than 182 WBCs. Patient started on IV antibiotics with Rocephin. KUB was completed showing right ureteral stent in place with no reported renal stones identified. Urine culture and blood culture sent to lab for analysis and patient admitted under our services with consultation to urology. Physical exam: Patient was seen and evaluated at bedside this morning. Patient reports "kind of feeling crappy" this morning. He reports generalized bodyaches and fatigue accompanied by urinary frequency and urgency. Bladder scans have been negative for retention and postvoid residual. Patient remains on IV antibiotics with Rocephin. Vital signs reviewed and stable. General: Nontoxic, no distress and appears stated age. Derm: Skin warm and dry, normal coloration for ethnicity. Head: Atraumatic, normocephalic and symmetric. Eyes: EOM's intact, no lid lag, and anicteric sclera Mouth: no lip lesions, mucus membranes moist Cardiovascular: regular rate and rhythm with normal S1S2, no murmur, positive posterior tibial pulses bilaterally, and cap refill < 2 seconds. Lungs: Respirations even, regular, and unlabored on room air. Lungs CTA bilaterally, no rhonchi, no rales, no wheezing, and no accessory muscle usage. Abdominal: soft, nontender to palpation, no guarding, no appreciable organomegaly Ext: ROM intact. No gross muscle atrophy, no edema, no contractures Neuro: Speech clear, face symmetrical and CN II-XII grossly intact with no noted focal neuro deficits Psych: Alert and oriented to person, place, time, and situation. Appropriate and pleasant affect. Assessment and Plan of Care: Acute cystitis Right ureteral stone Sepsis upon arrival secondary to above -Continue IV antibiotics with Rocephin 2 g daily. -Follow-up on urine and blood cultures. -Urology consulted, reviewed documentation in chart. -Continue gentle IV fluid hydration with 0.9% normal saline at 75 cc/h. -Order placed for bladder management to monitor for postvoid residual/urinary retention. -Continue Flomax 0.4 mg daily. -Symptomatic care and pain management with Tylenol 650 mg p.o. every 6 hours as needed for mild pain/fever, Toradol 15 mg IVP every 6 hours as needed for moderate pain, and Dilaudid 0.5 mg every 3 hours as needed for severe pain. -Continue to monitor renal function closely with repeat a.m. labs. Hyperlipidemia -Continue daily medication regimen with atorvastatin 10 mg nightly. Data and imaging reviewed: Labs completed and reviewed. CBC showing resolution of leukocytosis with WBC count of 10.1 and mild normocytic anemia with hemoglobin of 12.1. BMP showing stable renal function with BUN of 17, creatinine 1.28, GFR of 69. Blood glucose 107. Magnesium 1.9. Liver profile normal findings with exception of mild hypoalbuminemia with albumin of 3.3. Vital signs reviewed. Blood pressure 129/70, heart rate 83, respiratory rate 16, temp 98.9 F, and SpO2 of 95% on room air. Temperature high over the past 24 hours was 100.4 F. CODE STATUS: Full Code DVT prophylaxis: Lovenox Anticipated discharge date: Pending clinical course Anticipated discharge place: Home Patient was seen independently by Nurse Practitioner. This document was prepared using [employer] dictation software. Please allow for errors in chief catalyst operator while rare they do occur. I reviewed the documentation as provided by the KURT above, who is the original author of this note. I agree with the documented assessment and plan, with the following changes: none Objective - Vital Signs Vital signs: Vital Signs Temp 98.9 F 12/05/23 07:46 Pulse 83 12/05/23 07:46 Resp 16 12/05/23 07:46 BP 129/70 12/05/23 07:46 Pulse Ox 95 12/05/23 07:46 FiO2 Intake & Output 12/04/23 12/05/23 12/05/23 18:59 06:59 18:59 Weight 105.233 kg Other: Voiding Method Toilet Toilet # Voids 1 - Labs CBC & Chem 7: 12/05/23 11:12 12/05/23 11:12 Labs: Abnormal Lab Results - Last 24 Hours (Table) 12/04/23 12/04/23 12/04/23 Range/Units 09:03 09:03 09:03 WBC 12.3 H (3.8-10.6) k/uL Neutrophils # 10.3 H (1.3-7.7) k/uL BUN 23 H (9-20) mg/dL Creatinine 1.26 H (0.66-1.25) mg/dL Glucose 103 H (74-99) mg/dL Total Bilirubin 1.5 H (0.2-1.3) mg/dL Urine Protein 1+ H (Negative) Urine Blood Large H (Negative) Ur Leukocyte Esterase Large H (Negative) Urine RBC >182 H (0-5) /hpf Urine WBC >182 H (0-5) /hpf Urine WBC Clumps Few H (None) /hpf Urine Bacteria Many H (None) /hpf Urine Mucus Moderate H (None) /hpf
--- NOTE | 2023-12-05 22:08 | P.PN ---
Subjective Progress Note Date: 12/05/23 No acute overnight event, denies any flank pain. Urine culture growing gram negative bacilli Objective - Vital Signs Vital signs: Vital Signs Temp 98.6 F 12/05/23 19:49 Pulse 62 12/05/23 19:49 Resp 18 12/05/23 19:49 BP 113/67 12/05/23 19:49 Pulse Ox 97 12/05/23 19:49 FiO2 Intake & Output 12/05/23 12/05/23 12/06/23 06:59 18:59 06:59 Other: Voiding Method Toilet Toilet # Voids 1 3 - Constitutional General appearance: Present: no acute distress - Gastrointestinal General gastrointestinal: Present: soft. Absent: distended, tenderness - Psychiatric Psychiatric: Present: A&O x's 3 - Labs CBC & Chem 7: 12/05/23 11:12 12/05/23 11:12 Labs: Abnormal Lab Results - Last 24 Hours (Table) 12/05/23 12/05/23 Range/Units 11:12 11:12 RBC 4.13 L (4.30-5.90) m/uL Hgb 12.1 L (13.0-17.5) gm/dL Hct 36.9 L (39.0-53.0) % Neutrophils # 8.1 H (1.3-7.7) k/uL Sodium 136 L (137-145) mmol/L Creatinine 1.28 H (0.66-1.25) mg/dL Glucose 107 H (74-99) mg/dL Total Protein 6.2 L (6.3-8.2) g/dL Albumin 3.3 L (3.5-5.0) g/dL Microbiology - Last 24 Hours (Table) 12/04/23 09:03 Urine Culture - Preliminary Urine,Voided Gram Neg Bacilli Assessment and Plan Assessment: 43-year-old male status post right-sided stent insertion on November 16 for septic stone. Presents back with a UTI. I reviewed his KUB the stent is in a good location, at this point no further surgical intervention from urology standpoint, recommend keeping the hospital until urine culture is finalized I did discuss with him at this point we will keep his tentative surgery date for December 19.
[2023-12-06] MEDS: guaiFENesin SYRUP 100MG/5ML 200 MG/10 ML CUP PO PRN (02:00)
[2023-12-06 09:09] LABS: BUN/Creat Ratio 10.77 Ratio (12.00-20.00); Carbon Dioxide 23.1 mmol/L (21.6-31.8); Chloride 104 mmol/L (96-109); Glucose 85 mg/dL (70-110); Magnesium 1.9 mg/dL (1.5-2.4); Potassium 4.3 mmol/L (3.5-5.5); Sodium 138 mmol/L (135-145)
[2023-12-06 09:25] LABS: HCT 38.5 % (39.6-50.0); HGB 12.6 g/dL (13.0-17.0); MCH 29.6 pg (27.0-32.0); MCHC 32.7 g/dL (32.0-37.0); MCV 90.4 FL (80.0-97.0); Mean Platelet Volume 9.9 FL (9.5-12.2); NRBC Per 100 WBC 0 X 10*3/uL (0.00-0.01); Platelet Count 258 X 10*3/uL (140-440); RBC 4.26 X 10*6/uL (4.40-5.60); RDW 12.2 % (11.5-14.5); WBC 8.03 X 10*3/uL (4.50-10.00)
--- NOTE | 2023-12-06 11:47 | P.PN ---
Subjective Progress Note Date: 12/06/23 No acute overnight event, he is afebrile this morning. Urine culture growing gram-negative bacilli. Objective - Vital Signs Vital signs: Vital Signs Temp 98.4 F 12/06/23 06:59 Pulse 61 12/06/23 06:59 Resp 16 12/06/23 09:53 BP 116/69 12/06/23 06:59 Pulse Ox 96 12/06/23 06:59 FiO2 Intake & Output 12/05/23 12/06/23 12/06/23 18:59 06:59 18:59 Other: Voiding Method Toilet Toilet Toilet # Voids 3 3 - Constitutional General appearance: Present: no acute distress - Gastrointestinal General gastrointestinal: Present: soft. Absent: distended, tenderness - Psychiatric Psychiatric: Present: A&O x's 3 - Labs CBC & Chem 7: 12/06/23 04:43 12/06/23 04:43 Labs: Abnormal Lab Results - Last 24 Hours (Table) 12/06/23 12/06/23 Range/Units 04:43 04:43 RBC 4.26 L (4.40-5.60) X 10*6/uL Hgb 12.6 L (13.0-17.0) g/dL Hct 38.5 L (39.6-50.0) % BUN/Creatinine Ratio 10.77 L (12.00-20.00) Ratio Microbiology - Last 24 Hours (Table) 12/04/23 16:27 Blood Culture - Preliminary Blood 12/04/23 09:03 Urine Culture - Preliminary Urine,Voided Gram Neg Bacilli Assessment and Plan Assessment: 43-year-old male status post right-sided stent insertion on November 16 for septic stone. Presents back with a UTI. I reviewed his KUB the stent is in a good location, at this point no further surgical intervention from urology standpoint, recommend keeping the hospital until urine culture is finalized I did discuss with him at this point we will keep his tentative surgery date for December 19. When patient is stable for discharge recommending discharging home on antibiotics until his surgery date on December 19
--- NOTE | 2023-12-06 15:04 | P.PN ---
Subjective Progress Note Date: 12/06/23 Hospital course:: Patient is a pleasant 43-year-old male with a past medical history of hyperlipidemia and kidney stones. He was recently hospitalized secondary to right flank and back pain which resulted in diagnosis of UTI and right ureteral stone. He underwent cystoscopy with right-sided stent insertion on 11/16/23 and discharged home on oral antibiotics with Ceftin. Patient reports full completion of antibiotic course but reports over the past few days he began noticing urinary frequency, urgency, and dysuria and today woke up with a fever so he called his urologist, Dr. Ramos and was instructed to come to the emergency department as he will need to be admitted for IV antibiotics. Patient currently reports new onset fever accompanied by mild lower back pain, urinary frequency, urgency, and dysuria. He denies hematuria, flank pain, or suprapubic pain. He denies having any nausea, vomiting, headache, lightheadedness, dizziness, chest pain, palpitations, shortness of breath, or any other complaints at this time. Upon arrival to our facility, patient underwent evaluation in the emergency department. Vital signs upon arrival show blood pre ssure 115/74, heart rate 77, respiratory rate 18, temp 100.4 F, and SpO2 of 99% on room air. Labs completed and reviewed. CBC showing leukocytosis with WBC count of 12.3. BMP showing slightly elevated but stable renal function with BUN of 23, creatinine of 1.26, GFR of 70 with baseline creatinine of 1.4. Lactic acid was 0.9. Liver profile showing hyperbilirubinemia with total bili of 1.5 otherwise normal findings. Urinalysis was positive for protein, blood, leukocyte esterase, greater than 182 RBCs and greater than 182 WBCs. Patient started on IV antibiotics with Rocephin. KUB was completed showing right ureteral stent in place with no reported renal stones identified. Urine culture and blood culture sent to lab for analysis and patient admitted under our services with consultation to urology. Physical exam: Patient was seen and evaluated at bedside this morning. Currently he denies having any complaints or needs at this time. States feeling overall pretty good this morning and eagerly awaiting urine culture to finalize so he can go home. Patient updated on plan of care and to continue IV antibiotics with Rocephin pending final culture and sensitivity report. Vital signs reviewed and stable. General: Nontoxic, no distress and appears stated age. Derm: Skin warm and dry, normal coloration for ethnicity. Head: Atraumatic, normocephalic and symmetric. Eyes: EOM's intact, no lid lag, and anicteric sclera Mouth: no lip lesions, mucus membranes moist Cardiovascular: regular rate and rhythm with normal S1S2, no murmur, positive posterior tibial pulses bilaterally, and cap refill < 2 seconds. Lungs: Respirations even, regular, and unlabored on room air. Lungs CTA bilaterally, no rhonchi, no rales, no wheezing, and no accessory muscle usage. Abdominal: soft, nontender to palpation, no guarding, no appreciable or ganomegaly Ext: ROM intact. No gross muscle atrophy, no edema, no contractures Neuro: Speech clear, face symmetrical and CN II-XII grossly intact with no noted focal neuro deficits Psych: Alert and oriented to person, place, time, and situation. Appropriate and pleasant affect. Assessment and Plan of Care: Acute cystitis Right ureteral stone Sepsis upon arrival secondary to above -Continue IV antibiotics with Rocephin 2 g daily. -Follow-up on urine and blood cultures. -Urology consulted, reviewed documentation in chart. -Continue gentle IV fluid hydration with 0.9% normal saline at 75 cc/h. -Order placed for bladder management to monitor for postvoid residual/urinary retention. -Continue Flomax 0.4 mg daily. -Symptomatic care and pain management with Tylenol 650 mg p.o. every 6 hours as needed for mild pain/fever, Toradol 15 mg IVP every 6 hours as needed for moderate pain, and Dilaudid 0.5 mg every 3 hours as needed for severe pain. -Continue to monitor renal function closely with repeat a.m. labs. Hyperlipidemia -Continue daily medication regimen with atorvastatin 10 mg nightly. Data and imaging reviewed: Labs completed and reviewed. CBC showing resolution of leukocytosis with WBC count of 8.03 and mild normocytic anemia with hemoglobin of 12.6. BMP showing stable renal function with BUN of 14, creatinine 1.3, GFR of 71. Blood glucose 85. Magnesium 1.9. Vital signs reviewed. Blood pressure 116/69, heart rate 61, respiratory rate 16, temp 98.4 F, and SpO2 of 96% on room air. Patient has remained afebrile for the past 24 hours. -Urine culture showing positive for gram-negative bacilli, awaiting final culture and sensitivity report prior to discharge. -Blood culture showing no growth to date. CODE STATUS: Full Code DVT prophylaxis: Lovenox Anticipated discharge date: Pending clinical course. Awaiting urine culture to finalize prior to discharge. Anticipated discharge place: Home Patient was seen independently by Nurse Practitioner. This document was prepared using [employer] dictation software. Please allow for errors in crew trainer while rare they do occur. I reviewed the documentation as provided by the KURT above, who is the original author of this note. I agree with the documented assessment and plan, with the following changes: none Objective - Vital Signs Vital signs: Vital Signs Temp 98.4 F 12/06/23 06:59 Pulse 61 12/06/23 06:59 Resp 16 12/06/23 06:59 BP 116/69 12/06/23 06:59 Pulse Ox 96 12/06/23 06:59 FiO2 Intake & Output 12/05/23 12/06/23 12/06/23 18:59 06:59 18:59 Other: Voiding Method Toilet Toilet # Voids 3 3 - Labs CBC & Chem 7: 12/06/23 04:43 12/06/23 04:43 Labs: Abnormal Lab Results - Last 24 Hours (Table) 12/05/23 12/05/23 12/06/23 Range/Units 11:12 11:12 04:43 RBC 4.13 L 4.26 L (4.30-5.90) m/uL Hgb 12.1 L 12.6 L (13.0-17.5) gm/dL Hct 36.9 L 38.5 L (39.0-53.0) % Neutrophils # 8.1 H (1.3-7.7) k/uL Sodium 136 L (137-145) mmol/L Creatinine 1.28 H (0.66-1.25) mg/dL BUN/Creatinine Ratio (12.00-20.00) Ratio Glucose 107 H (74-99) mg/dL Total Protein 6.2 L (6.3-8.2) g/dL Albumin 3.3 L (3.5-5.0) g/dL 12/06/23 Range/Units 04:43 RBC (4.30-5.90) m/uL Hgb (13.0-17.5) gm/dL Hct (39.0-53.0) % Neutrophils # (1.3-7.7) k/uL Sodium (137-145) mmol/L Creatinine (0.66-1.25) mg/dL BUN/Creatinine Ratio 10.77 L (12.00-20.00) Ratio Glucose (74-99) mg/dL Total Protein (6.3-8.2) g/dL Albumin (3.5-5.0) g/dL Microbiology - Last 24 Hours (Table) 12/04/23 16:27 Blood Culture - Preliminary Blood 12/04/23 09:03 Urine Culture - Preliminary Urine,Voided Gram Neg Bacilli
[2023-12-06] MEDS: BENZONATATE 100 MG CAP PO PRN (17:10)
[2023-12-06] MEDS: IPRATROPIUM-ALBUTEROL 3 ML NEB INHALATION PRN (18:03)
[2023-12-07 09:05] VITALS: BP 111/67; PULSE 58; RESP 16; TEMP 98
--- NOTE | 2023-12-07 10:05 | P.DS ---
Providers Date of admission: 12/04/23 10:06 Expected date of discharge: 12/07/23 Attending physician: Alisia Hickey DO Consults: 12/04/23 10:02 Consult Physician Urgent Consulting Provider: Edy Rmaos Consult Reason/Comments: Ureteral stent, ureteral calculus Do you want consulting provider notified?: Already Contacted Primary care physician: Edwardo [place] Hospital Course: Discharge Diagnosis: E. coli UTI. Urine culture positive for E. coli resistant to ampicillin, gentamicin, tetracycline, and Bactrim. Discussed in detail with urologist, patient being discharged home on Ceftin 500 mg twice daily and to take for an additional 14 days as urologist would like patient to remain on antibiotics until stent is removed on 12/20/2023. Patient instructed to take antibiotic exactly as prescribed and not to miss any doses and to follow-up outpatient with PCP in 1 to 2 days and with urologist as scheduled. Right ureteral stone Sepsis upon arrival secondary to above Hyperlipidemia. Continue daily medication regimen with atorvastatin 10 mg nightly. Hospital course:: Patient is a pleasant 43-year-old male with a past medical history of hyperlipidemia and kidney stones. He was recently hospitalized secondary to right flank and back pain which resulted in diagnosis of UTI and right ureteral stone. He underwent cystoscopy with right-sided stent insertion on 11/16/23 and discharged home on oral antibiotics with Ceftin. Patient reports full completion of antibiotic course but reports over the past few days he began noticing urinary frequency, urgency, and dysuria and today woke up with a fever so he called his urologist, Dr. Ramos and was instructed to come to the emergency department as he will need to be admitted for IV antibiotics. Patient currently reports new onset fever accompanied by mild lower back pain, urinary frequency, urgency, and dysuria. He denies hematuria, flank pain, or suprapubic pain. He denies having any nausea, vomiting, headache, lightheadedness, dizziness, chest pain, palpitations, shortness of breath, or any other complaints at this time. Upon arrival to our facility, patient underwent evaluation in the emergency department. Vital signs upon arrival show blood pressure 115/74, heart rate 77, respiratory rate 18, temp 100.4 F, and SpO2 of 99% on room air. Labs completed and reviewed. CBC showing leukocytosis with WBC count of 12.3. BMP showing slightly elevated but stable renal function with BUN of 23, creatinine of 1.26, GFR of 70 with baseline creatinine of 1.4. Lactic acid was 0.9. Liver profile showing hyperbilirubinemia with total bili of 1.5 otherwise normal findings. Urinalysis was positive for protein, blood, leukocyte esterase, greater than 182 RBCs and greater than 182 WBCs. Patient started on IV antibiotics with Rocephin. KUB was completed showing right ureteral stent in place with no reported renal stones identified. Urine culture and blood culture sent to lab for analysis and patient admitted under our services with consultation to urology. Patient underwent hospitalization with IV antibiotics with Rocephin 2 g daily. He was evaluated by urologist. Blood culture showing no growth to date. Urine culture positive for E. coli resistant to ampicillin, gentamicin, tetracycline, and Bactrim. Discussed in detail with urologist, patient being discharged home on Ceftin 500 mg twice daily and to take for an additional 14 days as urologist would like patient to remain on antibiotics until stent is removed on 12/20/2023. Patient instructed to take antibiotic exactly as prescribed and not to miss any doses and to follow-up outpatient with PCP in 1 to 2 days and with urologist as scheduled. Physical exam: Vital signs reviewed and stable. General: Nontoxic, no distress and appears stated age. Derm: Skin warm and dry, normal coloration for ethnicity. Head: Atraumatic, normocephalic and symmetric. Eyes: EOM's intact, no lid lag, and anicteric sclera Mouth: no lip lesions, mucus membranes moist Cardiovascular: regular rate and rhythm with normal S1S2, no murmur, positive posterior tibial pulses bilaterally, and cap refill < 2 seconds. Lungs: Respirations even, regular, and unlabored on room air. Lungs CTA bilaterally, no rhonchi, no rales, no wheezing, and no accessory muscle usage. Abdominal: soft, nontender to palpation, no guarding, no appreciable organomegaly Ext: ROM intact. No gross muscle atrophy, no edema, no contractures Neuro: Speech clear, face symmetrical and CN II-XII grossly intact with no noted focal neuro deficits Psych: Alert and oriented to person, place, time, and situation. Appropriate and pleasant affect. A total of 35 minutes of time were spent preparing this complex discharge summary. Pt was discharged on 12/07/2023 at 9:59 AM. Patient was seen independently by Nurse Practitioner. This document was prepared using [employer] dictation software. Please allow for errors in sterile products processor while rare they do occur. I reviewed the documentation as provided by the KURT above, who is the original author of this note. I agree with the documented assessment and plan, with the following changes: none Patient Condition at Discharge: Stable Plan - Discharge Summary Discharge Rx Participant: No New Discharge Prescriptions: New cefUROXime axetiL [Ceftin] 500 mg PO BID 14 Days #28 tab Continue Simvastatin [Zocor] 20 mg PO HS Tamsulosin [Flomax] 0.4 mg PO DAILY #30 cap Ketorolac [Toradol] 10 mg PO Q6HR PRN #15 tab PRN Reason: Pain Discharge Medication List Simvastatin [Zocor] 20 mg PO HS 11/16/23 [History] Ketorolac [Toradol] 10 mg PO Q6HR PRN #15 tab 11/18/23 [Rx] Tamsulosin [Flomax] 0.4 mg PO DAILY #30 cap 11/18/23 [Rx] cefUROXime axetiL [Ceftin] 500 mg PO BID 14 Days #28 tab 12/07/23 [Rx] Follow up Appointment(s)/Referral(s): Edwardo Park MD [Primary Care Provider] - 1-2 days (Office is not answering at time of discharge. Please call for follow-up appointment.) Edy Ramos MD [STAFF PHYSICIAN] - 1 Week (Office stated patient is scheduled for Dec.19) Patient Instructions/Handouts: Urinary Tract Infection in Men (DC), Ureteral Stones (DC) Activity/Diet/Wound Care/Special Instructions: Activity: As tolerated. Take breaks as needed. Diet: Regular diet Special Instructions: Take all of your medications as directed and remember to keep all of your doctor's appointments and follow-up as needed. Please take antibiotic as directed, it is important for you to take twice daily every day until removal of stent on December 19 as discussed with you by your urologist, Dr. Ramos. Thank you for allowing us to participate in your care, it was truly a pleasure having you for our patient!!! Discharge Disposition: HOME SELF-CARE
--- NOTE | 2023-12-21 16:43 | CDI ---
Documentation Clarification Form Date: 12/21/2023 04:20:39 PM From: Irma Fry Admit Date: 12/04/2023 10:06:00 AM Patient Name: Haroldo Grissom Visit Number: [id number] Discharge Date: 12/07/2023 11:19:00 AM ATTENTION: The Clinical Documentation Specialists (CDI) and [facility] Coding Staff appreciate your assistance in clarifying documentation. Please respond to the clarification below the line at the bottom and electronically sign. The CDI & [facility] Coding staff will review the response and follow-up if needed. Please note: Queries are made part of the Legal Health Record. If you have any questions, please contact the author of this message via ITS. Doctor/Provider: Nati Loving Sepsis due to acute UTI/Cystitis is documented in the 12/03 History and Physical, Progress notes, and 12/06 Discharge Summary, and the patient has a right sided ureteral stent that was placed 11/16/23 with plans of being removed 12/20/23. Additional clarification regarding the etiology of the Sepsis is requested. History/Risk Factors: patient is a 43 year old male with a history of hyperlipidemia and kidney stones. Recently was admitted and diagnosed with UTI and right sided ureteral stone. He underwent a cystoscopy with right-sided stent insertion and discharged home. Clinical Indicators: patient recently underwent a cystoscopy with right sided stent insertion, discharged home on antibiotics, and reports full completion of antibiotics. Over the past few days patient reports urinary frequency, urgency, dysuria, and a fever. Admitted and diagnosed with sepsis, acute cystitis, and right ureteral stone. Urine culture: E-coli Lab results: WBC 12.3 Vitals: T100.4, P 77, RR18, BP115/74 Treatment: IV antibiotics with rocephin 2 g daily, urology consult, rohith IV fluids, Flomax 0.4mg daily, Tylenol 650 mg every 6 hours, toradol 15 mg IVP every 6 hours as needed, and dilaudid0.5 mg every 3 hours as needed. Patient was discharged home on Ceftin 500 mg twice a day for 14 days- to remain on antibiotics until stent is removed 12/20/23. Please clarify if there is a linkage between Sepsis with Acute UTI/Cystitis and the ureteral stent if known: [ x ] Sepsis with Acute UTI/Cystitis is due to the right ureteral stent [ ] Sepsis with Acute UTI/Cystitis is NOT related to the ureteral stent [ ] Other condition, please specify [ ] Unable to determine MTDD
== END 2023-12-07 11:19 | disposition home or self-care (01) | DRG 698 ==
LOC: EC 08:24 → 5NMEDONC 10:06 → 4SSUR 12:29
PROVIDERS: ADMIT Internal Medicine; ATTEND Internal Medicine
DX: T83.593A Infection and inflammatory reaction due to other urinary stents, initial encounter (principal); A41.51 Sepsis due to Escherichia coli [E. coli]; N30.00 Acute cystitis without hematuria; N20.2 Calculus of kidney with calculus of ureter; Z16.11 Resistance to penicillins; E80.6 Other disorders of bilirubin metabolism; D64.9 Anemia, unspecified; B96.20 Unspecified Escherichia coli [E. coli] as the cause of diseases classified elsewhere; E78.5 Hyperlipidemia, unspecified; Z96.0 Presence of urogenital implants; Z79.899 Other long term (current) drug therapy
CPT/HCPCS: 36415; 74018; 80048; 80053; 81001; 83605; 83690; 83735; 85025; 85027; 87040; 87077; 87086; 87186; 94640; 96361; 96365; 96375; 96376; 99285

== ENCOUNTER → 2023-12-17 | Outpatient (CLI) | payer BC ==
[2023-12-17 12:41] LABS: Basophils # (A) 0.04 X 10*3/uL (0.00-0.10); Basophils % (A) 0.7 %; Eosinophils # (A) 0.14 X 10*3/uL (0.04-0.35); Eosinophils % (A) 2.4 %; HCT 42.1 % (39.6-50.0); HGB 13.9 g/dL (13.0-17.0); Lymphocytes # (A) 1.81 X 10*3/uL (0.90-5.00); Lymphocytes % (A) 30.4 %; MCV 87.9 FL (80.0-97.0); Mean Platelet Volume 9.1 FL (9.5-12.2); Monocytes # (A) 0.37 X 10*3/uL (0.20-1.00); Monocytes % (A) 6.2 %; NRBC Per 100 WBC 0 X 10*3/uL (0.00-0.01); Neutrophils # (A) 3.58 X 10*3/uL (1.80-7.70); Neutrophils % (A) 60.1 %; Platelet Count 338 X 10*3/uL (140-440); RBC 4.79 X 10*6/uL (4.40-5.60); WBC 5.95 X 10*3/uL (4.50-10.00)
[2023-12-17 12:51] LABS: BUN/Creat Ratio 12.85 Ratio (12.00-20.00); Blood Urea Nitrogen 16.7 mg/dL (9.0-27.0); Calcium 9.6 mg/dL (8.7-10.3); Carbon Dioxide 28.7 mmol/L (21.6-31.8); Chloride 104 mmol/L (96-109); Glucose 97 mg/dL (70-110); Potassium 4.6 mmol/L (3.5-5.5); Sodium 142 mmol/L (135-145)
[2023-12-17 14:18] LABS: Appearance,Urine Clear (Clear); Bacteria,Urine None Seen (None Seen); Bilirubin,Urine Negative (Negative); Blood,Urine Small (Negative); Color,Urine Yellow (Yellow); Ketones,Urine Negative (Negative); Nitrite,Urine Negative (Negative); PH, Urine 6.5; Specific Gravity,Urine 1.015 (1.001-1.030); Urobilinogen,Urine 0.2
== END | disposition home or self-care (01) ==
LOC: LABPAT 08:14
PROVIDERS: ATTEND Urology
DX: Z01.812 Encounter for preprocedural laboratory examination (principal); N20.1 Calculus of ureter; N20.0 Calculus of kidney
CPT/HCPCS: 80048; 81001; 85025; 87086

== ENCOUNTER 2023-12-20 12:26 | Day surgery (SDC) | payer BC ==
--- NOTE | 2023-12-20 10:28 | P.HPIHPCON ---
History of Present Illness H&P Date: 12/20/23 Chief Complaint: Ureteral stone This is a 43-year-old male with history of millimeter right-sided ureteral stone, he is status post stent insertion on November 16 for septic stone. Presents today for definitive stone management, option of right-sided ureteroscopy with holmium laser was discussed with him. Aware of the risk which includes but not limited to bleeding, infection, injury to the ureter Consent for Procedure: I have explained the operation/procedure to the patient, including the risks, benefits, side effects, alternative therapies (including not receiving the proposed treatment or service), the likelihood of the patient achieving his/her goals, and potential recuperation problems for the procedure/sedation/analgesia, as well as any blood products, if indicated. I also explained to the patient the risks, benefits and side effects of the alternatives, as well as the risks related to not receiving the proposed procedure, care, treatment, or services. Past Medical History Past Medical History: No Reported History, Hyperlipidemia Additional Past Medical History / Comment(s): 10/2023, UTI, kidney stones History of Any Multi-Drug Resistant Organisms: None Reported Past Surgical History: No Surgical Hx Reported Additional Past Surgical History / Comment(s): urteral stent placement, fx arm as child Past Anesthesia/Blood Transfusion Reactions: No Reported Reaction Smoking Status: Never smoker - Past Family History Mother Family Medical History: Deep Vein Thrombosis (DVT) Medications and Allergies Home Medications Medication Instructions Recorded Confirmed Type Simvastatin [Zocor] 20 mg PO HS 11/16/23 12/14/23 History Ketorolac [Toradol] 10 mg PO Q6HR PRN #15 tab 11/18/23 12/14/23 Rx Tamsulosin [Flomax] 0.4 mg PO DAILY #30 cap 11/18/23 12/14/23 Rx cefUROXime axetiL [Ceftin] 500 mg PO BID 14 Days #28 tab 12/07/23 12/14/23 Rx Allergies Allergy/AdvReac Type Severity Reaction Status Date / Time No Known Allergies Allergy Verified 12/14/23 15:24 Surgical - Exam - General no distress, no pain - Eyes normal ocular movement, no pale - ENT normal nares, normal mucosa - Respiratory normal expansion, normal respiratory effort - Abdomen Abdomen: soft, non tender Assessment and Plan Assessment: OR for right-sided ureteroscopy, most lithotripsy, stone basketing and stent removal
[~2023-12-20 12:26] MED LIST: HYDROmorphone 0.5 MG/0.5 ML SYRINGE IVP PRN; MIDAZOLAM 2 MG/2 ML VIAL IV PRN
[2023-12-20 12:51] VITALS: RESP 16
[2023-12-20] MEDS: LACTATED RINGERS 1,000 ML IV SCH (13:04)
[2023-12-20] MEDS: DEXAMETHASONE SOD PHOSPHATE 4 MG/ML 1 ML VIAL IV ONE (13:05)
[2023-12-20] MEDS: SCOPOLAMINE 1 MG/72 HR PATCH TRANSDERM ONE (13:06)
[2023-12-20] MEDS: ONDANSETRON 4 MG/2 ML VIAL IVP ONE (13:06)
[2023-12-20] MEDS: IV FLUID CONTINUATION 1,000 ML IV ONE (13:09)
--- NOTE | 2023-12-20 13:16 | XR ---
EXAMINATION TYPE: XR KUB DATE OF EXAM: 12/20/2023 HISTORY: Pain Comparison: None.Single KUB is submitted for interpretation. Findings: Right renal calculi: None Visualized. Right ureteral calculi: Right ureteral stent is noted to be in place. No calculus along the course of the stent. Left renal calculi: None Visualized. Left ureteral calculi: None Visualized. Pelvic calcifications: None Visualized. Bowel gas pattern is unremarkable. No free air. No mass effects. IMPRESSION: 1. As above. [facility], , 12/20/2023 1:13 PM
[2023-12-20] MEDS ORDERED: MIDAZOLAM 2 MG/2 ML VIAL ONE (15:31)
[2023-12-20] MEDS ORDERED: GLYCOPYRROLATE 0.2 MG/ML 2 ML VIAL ONE (15:31)
[2023-12-20] MEDS ORDERED: PROPOFOL 10 MG/ML 20 ML VIAL IV ONE (15:31)
[2023-12-20] MEDS ORDERED: fentaNYL (PF) 50 MCG/ML 2 ML AMP ONE (15:31)
[2023-12-20] MEDS ORDERED: ePHEDrine 50 MG/ML 1 ML VIAL ONE (15:31)
[2023-12-20] MEDS ORDERED: LIDOCAINE 1% INJ 10MG/ML (20 ML MDV) ONE (15:31)
[2023-12-20] MEDS: LACTATED RINGERS 1,000 ML IV ONE (16:03)
[2023-12-20 16:22] VITALS: TEMP 97.4
--- NOTE | 2023-12-20 16:24 | P.OP ---
Date of Procedure: 12/20/23 Preoperative Diagnosis: Right ureteral stone Postoperative Diagnosis: Same Procedure(s) Performed: Cystoscopy, right ureteroscopy, lithotripsy, stone basketing and stent removal Implants: None Anesthesia: DARLYNA Surgeon: Edy Ramos Estimated Blood Loss (ml): 1 Pathology: other (Right ureteral stone) Condition: stable Disposition: PACU Indications for Procedure: This is a 43-year-old male with history of millimeter right-sided ureteral stone, he is status post stent insertion on November 16 for septic stone. Presents today for definitive stone management, option of right-sided ureteroscopy with holmium laser was discussed with him. Aware of the risk which includes but not limited to bleeding, infection, injury to the ureter Operative Findings: Right distal ureteral stone Description of Procedure: Patient brought to the operating room, general anesthesia was induced. He was prepped and draped in sterile fashion placed in dorsolithotomy position. Cystoscopy with a 21 [place] sheath was inserted per urethra, cystoscopy was performed which showed no abnormality within the bladder, the prostate was small and nonocclusive. At this time using the stent grasper the stent was removed intact. Next a semirigid ureteroscope was inserted per urethra and advanced up the right ureteral orifice, a stone was encountered in the distal ureter. Using the holmium laser the stone was fragmented, stone fragments were removed using a stone basket. At this time the ureteroscope was advanced all the way up to the proximal ureter which showed no additional stones, pullback ureteroscopy was performed showed no injury to the ureter or any ureteral stones. The bladder was emptied at the end of the case. Patient tolerated procedure well was taken recovery in stable condition
[2023-12-20 17:16] VITALS: BP 118/66; PULSE 88
--- NOTE | 2023-12-21 08:32 | FL ---
Fluoroscopy History: URETERAL STONE ureteral stone with Dr. Ramos fl time 1 sec dap [id number] [facility], , 12/21/2023 8:29 AM
== END 2023-12-20 17:40 | disposition home or self-care (01) ==
LOC: OR 12:26
PROVIDERS: ATTEND Urology
DX: N20.1 Calculus of ureter
CPT/HCPCS: 74018; 82365

== ENCOUNTER 2024-07-04 15:46 | Inpatient (IN) | payer BC ==
[2024-07-04 16:32] LABS: Glucose,Whole Blood 89 mg/dL (70-110)
[2024-07-04] MEDS: SODIUM CHLORIDE 0.9% 1,000 ML IV STA (16:32)
[2024-07-04 16:40] LABS: Basophils # (A) 0.02 10*3/uL (0.00-0.10); Basophils % (A) 0.5 %; Eosinophils # (A) 0.07 10*3/uL (0.04-0.35); Eosinophils % (A) 1.7 %; HCT 45.1 % (39.6-50.0); HGB 15.6 g/dL (13.0-17.0); Lymphocytes # (A) 1.41 10*3/uL (0.90-5.00); Lymphocytes % (A) 33.9 %; MCH 29.7 pg (27.0-32.0); MCHC 34.6 g/dL (32.0-37.0); MCV 85.9 fL (80.0-97.0); Mean Platelet Volume 9.2 fL (9.5-12.2); Monocytes % (A) 14.4 %; Neutrophils # (A) 2.06 10*3/uL (1.80-7.70); Neutrophils % (A) 49.5 %; Platelet Count 304 10*3/uL (140-440); RBC 5.25 10*6/uL (4.40-5.60); WBC 4.16 10*3/uL (4.50-10.00)
[2024-07-04 16:51] LABS: Partial Thromboplastin Time 25.5 sec (22.0-30.0); Prothrombin Time 10.7 sec (10.0-12.5)
[2024-07-04 16:53] LABS: ALT 51 U/L (4-49); AST 39 U/L (17-59); African American GFR (CKD) 83 (>60 ml/min/1.73 sqM); Albumin 4.7 g/dL (3.5-5.0); Alkaline Phosphatase 82 U/L (38-126); Anion Gap 11 mmol/L; Blood Urea Nitrogen 22 mg/dL (9-20); Carbon Dioxide 29 mmol/L (22-30); Chloride 101 mmol/L (98-107); Creatine Kinase 245 U/L (55-170); Glucose 90 mg/dL (74-99); Non-African American GFR(CKD) 72 (>60 ml/min/1.73 sqM); Sodium 141 mmol/L (137-145); Total Bilirubin 0.5 mg/dL (0.2-1.3); Total Protein 8.2 g/dL (6.3-8.2)
--- NOTE | 2024-07-04 16:58 | CT ---
EXAMINATION TYPE: CODE STROKE: CT brain wo contr DATE OF EXAM: 07/04/2024 4:46 PM COMPARISON: 10/23/2016. CLINICAL INDICATION: Male, 43 years old with history of Neuro deficit, acute, stroke suspected, Code stroke. Rt side facial paralysis. TECHNIQUE: Brain: Axial CT images of the brain were obtained with coronal and sagittal reformats created and rev iewed. Contrast used: None. Oral contrast used: None. CT DLP: 1175.6 mGycm, Automated exposure control for dose reduction was used. FINDINGS: Brain: Extra-axial spaces: No abnormal extra-axial fluid collections. Ventricular system: Within normal limits Cerebral parenchyma: No acute intraparenchymal hemorrhage or mass effect. The lou-white junction is well differentiated. Cerebellum: Unremarkable. Mass effect: No evidence of midline shift. Intracranial vasculature: unremarkable Soft tissues: Normal. Calvarium/osseous structures: No depressed skull fracture. Paranasal sinuses and mastoid air cells: Mild scattered paranasal sinus disease. Visualized orbits: Orbital contents are intact. IMPRESSION: No acute intracranial process. Findings communicated to Thong Dia MD on 07/04/2024 4:[address] Tomas Perry. [facility], , 07/04/2024 4:55 PM
--- NOTE | 2024-07-04 17:49 | XR ---
EXAMINATION TYPE: XR chest 2V DATE OF EXAM: 07/04/2024 5:13 PM COMPARISON: Chest radiographs from 05/05/2019 CLINICAL INDICATION: Male, 43 years old with history of altered mental status; [facility] TECHNIQUE: XR chest 2V Frontal and lateral views of the chest. FINDINGS: Lungs/Pleura: There is no evidence of pleural effusion, focal consolidation, or pneumothorax. Pulmonary vascularity: Unremarkable. Heart/mediastinum: Cardiomediastinal silhouette is unremarkable. Musculoskeletal: No acute osseous pathology. Other findings: None IMPRESSION: No acute cardiopulmonary disease/process. [facility], , 07/04/2024 5:47 PM
--- NOTE | 2024-07-04 17:53 | CT ---
EXAMINATION TYPE: CT angio head neck DATE OF EXAM: 07/04/2024 5:20 PM COMPARISON: CT head same day. CLINICAL INDICATION: Male, 43 years old with history of Neuro deficit, acute, stroke suspected; PHH, Code stroke. Rt side facial paralysis. TECHNIQUE: Axially acquired helical CT angiogram of the head and neck was obtained with contrast. Axi al images are supplemented with 3D reconstructions and MIP images which were post-processed at an in dependent workstation. NASCET criteria used. Contrast used:65 ml mL of Isovue 370 with IV Contrast, Oral contrast used: None. CT DLP: 771.9 mGycm, Automated exposure control for dose reduction was used. FINDINGS: CTA HEAD: No evidence of acute intracranial hemorrhage, mass effect, or midline shift. The ventricles, sulci, a nd cisterns are unremarkable. Vertebral arteries: The vertebral arteries are patent. Vertebral artery dominance: Left Basilar artery: The basilar artery is intact. The basilar artery bifurcation is normal. Internal Carotid arteries: The cervical, petrous, cavernous and supraclinoid segments are normal. PARKER: Patent with no evidence of aneurysm. ACOM: Present without evidence of aneurysm. MCA: Patent with no evidence of aneurysm. [employer]: origin left. Patent with no evidence of aneurysm. PCOM: origin left normal right. Dural sinuses: Patent. CTA NECK: Right Carotid System: The common carotid artery and external carotid artery are patent. The carotid bifurcation demonstrate s no evidence of hemodynamically significant stenosis. The remaining portions of the internal carotid artery demonstrate normal size without significant narrowing. Left Carotid System: The common carotid artery and external carotid artery are patent. The carotid bifurcation demonstrate s no evidence of hemodynamically significant stenosis. The remaining portions of the internal carotid artery demonstrate normal size without significant narrowing. Vertebral arteries are patent without evidence hemodynamically significant stenosis. There is a three-vessel aortic arch. The origins of the great vessels are patent. No evidence of hemo dynamically significant stenosis. Upper thorax: No findings IMPRESSION: 1. No evidence of dissection of the cervical internal carotid arteries or vertebral arteries. 2. No any evidence of significant stenosis at the carotid bifurcations. 3. No evidence of intracranial high-grade stenosis or intracranial aneurysm. [facility], , 07/04/2024 5:51 PM
[2024-07-04 17:54] LABS: Appearance,Urine Clear (Clear); Bilirubin,Urine Negative (Negative); Blood,Urine Negative (Negative); Color,Urine Colorless; Glucose,Urine (UA) Negative (Negative); Ketones,Urine Negative (Negative); Leukocyte Esterase,Urine Negative (Negative); Nitrite,Urine Negative (Negative); PH, Urine 5.5 (5.0-8.0); Protein,Urine Negative (Negative); Specific Gravity,Urine >1.050 (1.001-1.035); Urobilinogen,Urine <2.0 mg/dL (<2.0)
[2024-07-04] MEDS: ASPIRIN 325 MG TAB PO STA (18:26)
[2024-07-04 18:55] LABS: Influenza A Not Detected (Not Detectd); Influenza B Not Detected (Not Detectd); RSV Not Detected (Not Detectd)
--- NOTE | 2024-07-04 19:07 | ED ---
General Adult HPI - General Chief complaint: Neuro Symptoms/Deficit Stated complaint: R facial numbness, vision loss Time Seen by Provider: 07/04/24 16:10 Source: patient, RN notes reviewed, old records reviewed Mode of arrival: ambulatory Limitations: no limitations - History of Present Illness Initial comments: Patient is a 43-year-old male who presents emergency department complaining of strokelike symptoms. Patient states that since Tuesday he has been having some tongue paresthesias and numbness but then starting this morning when he when he awoke at approximately 7 AM, he has been noticing right-sided facial strange sensation, droop, numbness and weakness. Seems to have progressed. Is now having right-sided facial droop, as well as a numbness sensation over the entire right side of the face and presents for further evaluation at this time. Recent URI symptoms. No fevers or chills or sick contacts. No chest pain or shortness of breath. Does take a statin for high cholesterol but no history of stroke. Is not on blood thinners. Denies any head trauma. Last known well was last night at approximately 11 PM when he went to sleep after going the [employer] game. Presents for further evaluation at this time. - Related Data Home Medications Medication Instructions Recorded Confirmed Simvastatin [Zocor] 20 mg PO HS 11/16/23 07/04/24 predniSONE 50 mg PO DIRECTED 07/04/24 07/04/24 Allergies Allergy/AdvReac Type Severity Reaction Status Date / Time No Known Allergies Allergy Verified 07/04/24 17:30 Review of Systems ROS Statement: Those systems with pertinent positive or pertinent negative responses have been documented in the HPI. Review of Systems: CONST: Denies fever EYES: Denies blurry vision ENT: Denies nasal congestion C/V: Denies Chest pain RESP: Denies shortness of breath GI: Denies abdominal pain : Denies dysuria SKIN: Denies rash. MSK: Denies joint pain. NEURO: Endorses right-sided facial numbness and weakness ROS Other: All systems not noted in ROS Statement are negative. Past Medical History Past Medical History: No Reported History Additional Past Medical History / Comment(s): 10/2023, UTI History of Any Multi-Drug Resistant Organisms: None Reported Past Surgical History: No Surgical Hx Reported Additional Past Surgical History / Comment(s): ureteral stent placement 11/17/23 Past Anesthesia/Blood Transfusion Reactions: No Reported Reaction Past Psychological History: No Psychological Hx Reported Smoking Status: Never smoker Past Alcohol Use History: Occasional, Rare Past Drug Use History: None Reported General Exam - General Exam Comments Initial Comments: General: Appears in no acute distress. HEAD: Normal with no signs of head trauma. EYES: PERRLA, EOMI, conjunctiva normal, no discharge. Pupils are 3 mm and equal bilaterally. ENT: Hearing grossly intact, normal oropharynx. Right-sided facial droop. Some weakness of the forehead as well. RESPIRATORY: Clear breath sounds bilaterally. No wheezes, rales, or rhonchi. C/V: Regular rate and rhythm. S1 and S2 auscultated, no edema, peripheral pulses 2+ and intact throughout ABD: Abd is soft, nontender, nondistended EXT: Normal range of motion, no obvious deformity SKIN: No rashes or lesions observed on exposed skin. NEURO: Alert and oriented x 4. NIH is 2 for right sided facial droop. Patient does have partial weakness of the right forehead however it is not full paralysis. Some mild weakness with eye closing as well. However it is not full weakness as seen commonly with Ponce's palsy. Limitations: no limitations Course Vital Signs 07/04/24 07/04/24 07/04/24 16:03 16:30 16:45 Temperature 99.1 F Pulse Rate 72 67 62 Respiratory 18 20 20 Rate Blood Pressure 134/80 125/84 132/80 O2 Sat by Pulse 96 99 99 Oximetry 07/04/24 07/04/24 07/04/24 17:00 17:30 18:00 Temperature Pulse Rate 65 64 57 L Respiratory 18 18 20 Rate Blood Pressure 128/78 125/72 104/69 O2 Sat by Pulse 97 98 97 Oximetry 07/04/24 07/04/24 07/04/24 18:30 19:15 20:27 Temperature 98.2 F Pulse Rate 64 62 67 Respiratory 20 18 18 Rate Blood Pressure 118/81 105/61 141/71 O2 Sat by Pulse 98 98 98 Oximetry Medical Decision Making - Medical Decision Making Was pt. sent in by a medical professional or institution (, PA, ELECTRICAL INSTRUMENTATION TECHNICIAN, urgent care, hospital, or assisted...) When possible be specific @ -No Did you speak to anyone other than the patient for history (EMS, parent, family, police, friend...)? What history was obtained from this source @ -No Did you review nursing and triage notes (agree or disagree)? Why? @ -I reviewed and agree with nursing and triage notes Were old charts reviewed (outside hosp., previous admission, EMS record, old EKG, old radiological studies, urgent care reports/EKG's, assisted records)? Report findings @ -No old charts were reviewed Differential Diagnosis (chest pain, altered mental status, abdominal pain women, abdominal pain men, vaginal bleeding, weakness, fever, dyspnea, syncope, headache, dizziness, GI bleed, back pain, seizure, CVA, palpatations, mental health, musculoskeletal)? @ -Differential CVA Ischemic stroke, hemorrhagic stroke, brain tumor, atypical migraine, Wernicke's encephalopathy, seizure, multiple sclerosis, meningitis, encephalitis, hypoglycemia, Guillain-Blackman, electrolytes disturbance, myasthenia gravis.... This is not meant to be an all-inclusive list EKG interpreted by me (3pts min.). @ -As above X-rays interpreted by me (1pt min.). @ -Chest x-ray showed no obvious acute cardiopulmonary process CT interpreted by me (1pt min.). @ -CT brain revealed no obvious acute intracranial process. CT angiogram head and neck showed no obvious acute process. U/S interpreted by me (1pt. min.). @ -None done What testing was considered but not performed or refused? (CT, X-rays, U/S, labs)? Why? @ -None What meds were considered but not given or refused? Why? @ -None Did you discuss the management of the patient with other professionals (professionals i.e. , PA, ELECTRICAL INSTRUMENTATION TECHNICIAN, lab, RT, psych nurse, high school social studies teacher, coffee maker, teacher, correction officer penitentiary, briefcase sewer)? Give summary @ -Discussed the case at length with on-call neuro interventionalists, Dr. Ramírez who was in agreement with plan. Patient does not meet tenecteplase criteria. Likely admission for medical management and evaluation by neurology. Discussed results of workup with Dr. Pineda, on-call neurologist who accepted the consult and was in agreement the plan. Requested I order MRI with and without contrast of the brain. I spoke with the admitting provider, Dr. Schroeder of [facility] who accepted the admission. Was smoking cessation discussed for >3mins.? @ -No Was critical care preformed (if so, how long)? @ -Yes, 38 minutes Were there social determinants of health that impacted care today? How? (Homelessness, low income, unemployed, alcoholism, drug addiction, transportation, low edu. Level, literacy, decrease access to med. care, alf, rehab)? @ -No Was there de-escalation of care discussed even if they declined (Discuss DNR or withdrawal of care, Hospice)? DNR status @ -No What co-morbidities impacted this encounter? (DM, HTN, Smoking, COPD, CAD, Cancer, CVA, ARF, Chemo, Hep., AIDS, mental health diagnosis, sleep apnea, morbid obesity)? @ -Hyperlipidemia Was patient admitted / discharged? Hospital course, mention meds given and route, prescriptions, significant lab abnormalities, going to OR and other pertinent info. @ -Based on patient's presentation and physical exam, patient was made a code stroke. Last known well was 11 PM last night. Woke up with symptoms of NIH of 2 for right-sided facial droop. Did consider that it could be Ponce's palsy however patient does not have full paralysis of the right forehead. He does have some weakness there as well as with eye closing. However this is far from conclusive for being Ponce's palsy. Therefore patient was made the code stroke. He is not a candidate for tenecteplase as patient is outside of the window for therapy and risk for outweigh the benefits. Patient was in agreement this plan. I spoke with the on-call neurointensivist, Dr. Ramírez who was in agreement with this plan. Vital signs are within acceptable limits. CT brain and CT angiogram head and neck negative for any obvious acute process. Laboratory studies returned unremarkable as well. Slight elevation in creatinine kinase. Patient was given IV fluids. Chest x-ray unremarkable. EKG unremarkable. At this time, patient was administered 325 mg of aspirin. I discussed the case with on-call neurologist, Dr. Pineda who accepted the consult was in agreement the plan and requested that I order MRI with and without contrast of the brain. I spoke with the admitting provider, Dr. Schroeder of [facility] who accepted the admission. Undiagnosed new problem with uncertain prognosis? @ -No Drug Therapy requiring intensive monitoring for toxicity (Heparin, Nitro, Insulin, Cardizem)? @ -No Were any procedures done? @ -No Diagnosis/symptom? @ -CVA versus Ponce's palsy Acute, or Chronic, or Acute on Chronic? @ -Acute Uncomplicated (without systemic symptoms) or Complicated (systemic symptoms)? @ -Complicated Side effects of treatment? @ -No Exacerbation, Progression, or Severe Exacerbation? @ -No Poses a threat to life or bodily function? How? (Chest pain, [place], [place], pneumonia, PE, COPD, DKA, ARF, appy, cholecystitis, CVA, Diverticulitis, Homicidal, Suicidal, threat to staff... and all critical care pts) @ -Potentially, yes - Lab Data Result diagrams: 07/04/24 16:31 07/04/24 16:31 Lab Results 07/04/24 07/04/24 07/04/24 Range/Units 16:27 16:31 16:31 WBC 4.16 L (4.50-10.00) 10*3/uL RBC 5.25 (4.40-5.60) 10*6/uL Hgb 15.6 (13.0-17.0) g/dL Hct 45.1 (39.6-50.0) % MCV 85.9 (80.0-97.0) fL MCH 29.7 (27.0-32.0) pg MCHC 34.6 (32.0-37.0) g/dL Plt Count 304 (140-440) 10*3/uL MPV 9.2 L (9.5-12.2) fL Immature Gran % (Auto) 0 % Neutrophils % 49.5 % Lymphocytes % 33.9 % Monocytes % 14.4 % Eosinophils % 1.7 % Basophils % 0.5 % Immature Gran # 0.00 (0.00-0.04) 10*3/uL Neutrophils # 2.06 (1.80-7.70) 10*3/uL Lymphocytes # 1.41 (0.90-5.00) 10*3/uL Monocytes # 0.60 (0.20-1.00) 10*3/uL Eosinophils # 0.07 (0.04-0.35) 10*3/uL Basophils # 0.02 (0.00-0.10) 10*3/uL PT 10.7 (10.0-12.5) sec INR 1.0 (<1.2) APTT 25.5 (22.0-30.0) sec Sodium (137-145) mmol/L Potassium (3.5-5.1) mmol/L Chloride (98-107) mmol/L Carbon Dioxide (22-30) mmol/L Anion Gap mmol/L BUN (9-20) mg/dL Creatinine (0.66-1.25) mg/dL Est GFR (CKD-EPI)AfAm (>60 ml/min/1.73 sqM) Est GFR (CKD-EPI)NonAf (>60 ml/min/1.73 sqM) Glucose (74-99) mg/dL POC Glucose (mg/dL) 89 (70-110) mg/dL POC Glu Manager [facility] ID Kay Daley Calcium (8.4-10.2) mg/dL Total Bilirubin (0.2-1.3) mg/dL AST (17-59) U/L ALT (4-49) U/L Alkaline Phosphatase (38-126) U/L Creatine Kinase (55-170) U/L Troponin I (0.000-0.034) ng/mL Total Protein (6.3-8.2) g/dL Albumin (3.5-5.0) g/dL Urine Color Urine Appearance (Clear) Urine pH (5.0-8.0) Ur Specific [place] (1.001-1.035) Urine Protein (Negative) Urine Glucose (UA) (Negative) Urine Ketones (Negative) Urine Blood (Negative) Urine Nitrite (Negative) Urine Bilirubin (Negative) Urine Urobilinogen (<2.0) mg/dL Ur Leukocyte Esterase (Negative) Influenza Type A (PCR) (Not Detectd) Influenza Type B (PCR) (Not Detectd) RSV (PCR) (Not Detectd) SARS-CoV-2 (PCR) (Not Detectd) 07/04/24 07/04/24 07/04/24 Range/Units 16:31 16:31 17:39 WBC (4.50-10.00) 10*3/uL RBC (4.40-5.60) 10*6/uL Hgb (13.0-17.0) g/dL Hct (39.6-50.0) % MCV (80.0-97.0) fL MCH (27.0-32.0) pg MCHC (32.0-37.0) g/dL Plt Count (140-440) 10*3/uL MPV (9.5-12.2) fL Immature Gran % (Auto) % Neutrophils % % Lymphocytes % % Monocytes % % Eosinophils % % Basophils % % Immature Gran # (0.00-0.04) 10*3/uL Neutrophils # (1.80-7.70) 10*3/uL Lymphocytes # (0.90-5.00) 10*3/uL Monocytes # (0.20-1.00) 10*3/uL Eosinophils # (0.04-0.35) 10*3/uL Basophils # (0.00-0.10) 10*3/uL PT (10.0-12.5) sec INR (<1.2) APTT (22.0-30.0) sec Sodium 141 (137-145) mmol/L Potassium 4.0 (3.5-5.1) mmol/L Chloride 101 (98-107) mmol/L Carbon Dioxide 29 (22-30) mmol/L Anion Gap 11 mmol/L BUN 22 H (9-20) mg/dL Creatinine 1.25 (0.66-1.25) mg/dL Est GFR (CKD-EPI)AfAm 83 (>60 ml/min/1.73 sqM) Est GFR (CKD-EPI)NonAf 72 (>60 ml/min/1.73 sqM) Glucose 90 (74-99) mg/dL POC Glucose (mg/dL) (70-110) mg/dL POC Glu Manager [place] ID Calcium 10.0 (8.4-10.2) mg/dL Total Bilirubin 0.5 (0.2-1.3) mg/dL AST 39 (17-59) U/L ALT 51 H (4-49) U/L Alkaline Phosphatase 82 (38-126) U/L Creatine Kinase 245 H (55-170) U/L Troponin I <0.012 (0.000-0.034) ng/mL Total Protein 8.2 (6.3-8.2) g/dL Albumin 4.7 (3.5-5.0) g/dL Urine Color Colorless Urine Appearance Clear (Clear) Urine pH 5.5 (5.0-8.0) Ur Specific [place] >1.050 H (1.001-1.035) Urine Protein Negative (Negative) Urine Glucose (UA) Negative (Negative) Urine Ketones Negative (Negative) Urine Blood Negative (Negative) Urine Nitrite Negative (Negative) Urine Bilirubin Negative (Negative) Urine Urobilinogen <2.0 (<2.0) mg/dL Ur Leukocyte Esterase Negative (Negative) Influenza Type A (PCR) (Not Detectd) Influenza Type B (PCR) (Not Detectd) RSV (PCR) (Not Detectd) SARS-CoV-2 (PCR) (Not Detectd) 07/04/24 Range/Units 18:15 WBC (4.50-10.00) 10*3/uL RBC (4.40-5.60) 10*6/uL Hgb (13.0-17.0) g/dL Hct (39.6-50.0) % MCV (80.0-97.0) fL MCH (27.0-32.0) pg MCHC (32.0-37.0) g/dL Plt Count (140-440) 10*3/uL MPV (9.5-12.2) fL Immature Gran % (Auto) % Neutrophils % % Lymphocytes % % Monocytes % % Eosinophils % % Basophils % % Immature Gran # (0.00-0.04) 10*3/uL Neutrophils # (1.80-7.70) 10*3/uL Lymphocytes # (0.90-5.00) 10*3/uL Monocytes # (0.20-1.00) 10*3/uL Eosinophils # (0.04-0.35) 10*3/uL Basophils # (0.00-0.10) 10*3/uL PT (10.0-12.5) sec INR (<1.2) APTT (22.0-30.0) sec Sodium (137-145) mmol/L Potassium (3.5-5.1) mmol/L Chloride (98-107) mmol/L Carbon Dioxide (22-30) mmol/L Anion Gap mmol/L BUN (9-20) mg/dL Creatinine (0.66-1.25) mg/dL Est GFR (CKD-EPI)AfAm (>60 ml/min/1.73 sqM) Est GFR (CKD-EPI)NonAf (>60 ml/min/1.73 sqM) Glucose (74-99) mg/dL POC Glucose (mg/dL) (70-110) mg/dL POC Glu Manager [place] ID Calcium (8.4-10.2) mg/dL Total Bilirubin (0.2-1.3) mg/dL AST (17-59) U/L ALT (4-49) U/L Alkaline Phosphatase (38-126) U/L Creatine Kinase (55-170) U/L Troponin I (0.000-0.034) ng/mL Total Protein (6.3-8.2) g/dL Albumin (3.5-5.0) g/dL Urine Color Urine Appearance (Clear) Urine pH (5.0-8.0) Ur Specific [place] (1.001-1.035) Urine Protein (Negative) Urine Glucose (UA) (Negative) Urine Ketones (Negative) Urine Blood (Negative) Urine Nitrite (Negative) Urine Bilirubin (Negative) Urine Urobilinogen (<2.0) mg/dL Ur Leukocyte Esterase (Negative) Influenza Type A (PCR) Not Detected (Not Detectd) Influenza Type B (PCR) Not Detected (Not Detectd) RSV (PCR) Not Detected (Not Detectd) SARS-CoV-2 (PCR) Not Detected (Not Detectd) - EKG Data -: EKG Interpreted by Me EKG Comments: 12-lead Electrocardiogram Interpretation Note EKG was reviewed and interpreted by myself. 12-lead ECG performed at 1622 is interpreted by me as revealing sinus bradycardia at a rate of 56 beats per minute. [place] is normal. NH interval is 187 ms, QRS durations 100 ms, QTc is 380 ms.. There were no ST or T wave abnormalities to suggest myocardial ischemia or injury. R wave progression across the precordium was satisfactory. By my interpretation this EKG is non-diagnostic for acute ischemia. Critical Care Time Critical Care Time: Yes Total Critical Care Time: 38 Disposition Clinical Impression: CVA (cerebral vascular accident) Narrative: cva vs. ponce's palsy Disposition: ADMITTED IP TO THIS [facility] Condition: Stable Time of Disposition: 19:00
[2024-07-04] MEDS: IPRATROPIUM-ALBUTEROL 3 ML NEB INHALATION PRN (23:44)
[2024-07-05] MEDS ORDERED: ARTIFICIAL TEARS-HYPROMELLOSE DROPS 15 ML BTL RIGHT EYE PRN (01:30)
--- NOTE | 2024-07-05 02:02 | P.HPIM ---
History of Present Illness H&P Date: 07/04/24 Patient is a 43-year-old male with hyperlipidemia and nephrolithiasis status post right-sided stent insertion in 11/2023 here for right facial numbness and tongue. Patient reported that his numbness and tingling started with the tongue on Friday 06/30 and today he started to have right facial droop and right facial numbness. He sought care with a telehealth visit today and was advised that he possibly has Ponce's palsy. However, at his workplace his right facial droop persisted and he was advised by his employer to seek care in the ED. He denied vision changes, speech changes, facial pain, fever, soart throat, nasal congestion, focal weakness in other extremities, chest pain, palpitations, shortness of breath, abdominal pain, recent illness or recent trauma. On admission: Vitals: 99.1 Fahrenheit, pulse rate 72, respiratory rate 18, blood pressure 134/80 Labs: WBC 4.16, hemoglobin 15.6, creatinine kinase 245, troponin less than 0.0 12, BUN 22, creatinine 1.25. Urinalysis unremarkable. Cepheid 4 Plex negative. Imaging: EKG showed sinus bradycardia with a rate of 56 bpm, normal axis, nonspecific ST-T changes, inverted T waves in leads I and III, good R wave progression, QTc [address] showed no acute process. Chest x-ray showed no acute cardiopulmonary process. ED documentation reviewed. Aspirin and 1 L bolus of 0.9 normal saline given in the ED. Review of systems: Pertinent positives and negatives as discussed in HPI, a complete review of systems was performed and all other systems are negative. Social history: Tobacco: Denies tobacco use history Alcohol: Denies alcohol intake history Recreational drugs: Denies history with recreational or illicit drug use Travel: No recent prolonged travel Physical examination: Vital signs reviewed General: non toxic, no distress, appears at stated age, room air Derm: no unusual rashes/lesions, warm Head: atraumatic, normocephalic, symmetric Eyes: EOMI, excessive tearing, red sclera, pupils equal round reactive to light ENT: Nose and ears atraumatic Neck: No cervical lymphadenopathy, trachea midline, supple Mouth: no lip lesion, mucus membranes moist Cardiovascular: S1S2 reg, no murmur Lungs: CTA bilateral, no rhonchi, no rales, no accessory muscle use Abdominal: soft, nondistended, nontender to palpation, no guarding Ext: muscle strength 5 out of 5 in all 4 extremities grossly, no gross muscle atrophy, no contractures, positive dorsalis pedis pulse bilateral, no edema Neuro: CN II-XI grossly intact, right-sided facial weakness and droop Psych: Alert and oriented x 3, appropriate affect and mood Assessment/Plan: 43-year-old male with hyperlipidemia here for evaluation of right facial numbness and droop. Imaging and labs showed no acute process. The patient is admitted with an anticipated less than 2 midnight stay for evaluation of right facial acial numbness and droop Active: #. 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 Hyperlipidemia -Continue home simvastatin 20mg daily F: Oral intake N: Regular diet A: Ambulate as needed DVT ppx: Lovenox 40 mg subcu daily CODE STATUS: Full Discussed with: Patient Anticipated discharge place: Home Flaquita Potter MD PGY-1 Internal Medicine Dictation was produced using [employer] dictation software. please excuse any gra mmatical, word or spelling errors. I have seen and evaluated the patient today. Discussed with the resident and agree with the residents finding and plan as documented in the resident's note. awaiting brain mri Past Medical History Past Medical History: No Reported History Additional Past Medical History / Comment(s): 10/2023, UTI History of Any Multi-Drug Resistant Organisms: None Reported Past Surgical History: No Surgical Hx Reported Additional Past Surgical History / Comment(s): ureteral stent placement 11/17/23 Past Anesthesia/Blood Transfusion Reactions: No Reported Reaction Past Psychological History: No Psychological Hx Reported Smoking Status: Never smoker Past Alcohol Use History: Occasional, Rare Past Drug Use History: None Reported Medications and Allergies Home Medications Medication Instructions Recorded Confirmed Type Simvastatin [Zocor] 20 mg PO HS 11/16/23 07/04/24 History predniSONE 50 mg PO DIRECTED 07/04/24 07/04/24 History Allergies Allergy/AdvReac Type Severity Reaction Status Date / Time No Known Allergies Allergy Verified 07/04/24 17:30 Physical Exam Vitals: Vital Signs Temp Pulse Resp BP Pulse Ox 07/04/24 19:15 62 18 105/61 98 07/04/24 18:30 64 20 118/81 98 07/04/24 18:00 57 L 20 104/69 97 07/04/24 17:30 64 18 125/72 98 07/04/24 17:00 65 18 128/78 97 07/04/24 16:45 62 20 132/80 99 07/04/24 16:30 67 20 125/84 99 07/04/24 16:03 99.1 F 72 18 134/80 96 Intake and Output 07/04/24 07/04/24 07/04/24 06:59 14:59 22:59 Other: Weight 108.862 kg Results CBC & Chem 7: 07/04/24 16:31 07/04/24 16:31 Labs: Abnormal Lab Results - Last 24 Hours (Table) 07/04/24 07/04/24 07/04/24 Range/Units 16:31 16:31 17:39 WBC 4.16 L (4.50-10.00) 10*3/uL MPV 9.2 L (9.5-12.2) fL BUN 22 H (9-20) mg/dL ALT 51 H (4-49) U/L Creatine Kinase 245 H (55-170) U/L Ur Specific [place] >1.050 H (1.001-1.035)
[2024-07-05 10:47] LABS: Chol/HDL Ratio 3.97 Ratio; LDL Cholesterol,Calculated 97.5 mg/dL (0.0-131.0)
[2024-07-05] MEDS: ASPIRIN 81 MG PO SCH (10:52)
[2024-07-05] MEDS: ENOXAPARIN 40 MG/0.4 ML SYRINGE SQ SCH (10:52)
[2024-07-05] MEDS: predniSONE 20 MG TAB PO SCH (10:52)
--- NOTE | 2024-07-05 13:26 | P.PN ---
Subjective Progress Note Date: 07/05/24 Subjective: Patient seen and examined at bedside. No acute events overnight. Pertinent positives and negatives as discussed above, a complete review of systems was performed and all other systems are negative. Vitals Signs Reviewed. General: Nontoxic, no distress, appears at stated age Derm: Warm, dry Head: Atraumatic, normocephalic, symmetric Eyes: EOMI, no lid lag, anicteric sclera Mouth: No lip lesion, mucus membranes moist Cardiovascular: S1S2 reg, no murmur Lungs: CTA bilateral, no rhonchi, no rales, no accessory muscle use Abdominal: Soft, nontender to palpation, no guarding, no appreciable organomegaly Ext: No gross muscle atrophy, no edema, no contractures Neuro: Right-sided facial palsy, intact sensation Psych: Alert, oriented, appropriate affect Data Reviewed Today: Pertinent Labs: Total cholesterol 159, LDL 97.5 Imaging: No new imaging Assessment and Plan: 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 History of dyslipidemia - Discussed with neurology, MRI brain with and without contrast pending - Started on prednisone 60 mg daily-continue aspirin 81 mg, atorvastatin 10 mg nightly - Continue artificial tears for right eye DVT ppx: Lovenox Code status: Full code Anticipated discharge place: Pending clinical course Anticipated discharge time: Pending clinical course Objective - Vital Signs Vital signs: Vital Signs Temp 98.2 F 07/05/24 12:00 Pulse 58 L 07/05/24 12:00 Resp 16 07/05/24 12:00 BP 116/70 07/05/24 12:00 Pulse Ox 98 07/05/24 12:00 FiO2 Intake & Output 07/04/24 07/05/24 07/05/24 18:59 06:59 18:59 Weight 108.862 kg 108.8 kg Other: Voiding Method Toilet # Voids 1 - Labs CBC & Chem 7: 07/04/24 16:31 07/04/24 16:31 Labs: Abnormal Lab Results - Last 24 Hours (Table) 07/04/24 07/04/24 07/04/24 Range/Units 16:31 16:31 17:39 WBC 4.16 L (4.50-10.00) 10*3/uL MPV 9.2 L (9.5-12.2) fL BUN 22 H (9-20) mg/dL ALT 51 H (4-49) U/L Creatine Kinase 245 H (55-170) U/L Ur Specific [place] >1.050 H (1.001-1.035)
--- NOTE | 2024-07-05 13:42 | P.CNNES ---
History of Present Illness Consult date: 07/05/24 Requesting physician: Thong Dia Reason for Consult: cva vs ponce's palsy History of Present Illness: This is a 43-year-old man who presents emergency department because of right facial weakness. He stated that this past Tuesday he felt his tongue was tingling as if he was to the dentist and had Novocain. Yesterday he felt the tingling was up into his right eye socket then later he was evaluated by telemetry primary care physician and he had him look into a mirror and it seems that the patient had right facial weakness. He felt his weakness got worse later as a result he came to the hospital for further evaluation. He denies any other focal weakness, denies any speech difficulty, visual changes. He denies any history of stroke or TIAs in the past. He just has elevated cholesterol level and he is on statin. He denies tobacco use, denies illicit drug use. He rarely drinks alcohol. Family does have history of cardiac issues his father side and age of 40. He denies being on any antiplatelet or anticoagulation. Patient stated that he has been having dry cough in the last 1 week. Denies any fever or any sick contacts. Some of the workup during this hospital visit consisted of: I reviewed the lab workup. CT of the head is reported as no acute intracranial process. I personally reviewed the CT and agree with report. CT angiography of the head and neck is unremarkable for any significant s tenosis, any dissection or any intracranial aneurysm. Review of Systems As per HPI Past Medical History Past Medical History: No Reported History Additional Past Medical History / Comment(s): 10/2023, UTI History of Any Multi-Drug Resistant Organisms: None Reported Past Surgical History: No Surgical Hx Reported Additional Past Surgical History / Comment(s): ureteral stent placement 11/17/23 Past Anesthesia/Blood Transfusion Reactions: No Reported Reaction Past Psychological History: No Psychological Hx Reported Smoking Status: Never smoker Past Alcohol Use History: Occasional, Rare Past Drug Use History: None Reported Medications and Allergies Home Medications Medication Instructions Recorded Confirmed Type Simvastatin [Zocor] 20 mg PO HS 11/16/23 07/04/24 History predniSONE 50 mg PO DIRECTED 07/04/24 07/04/24 History Allergies Allergy/AdvReac Type Severity Reaction Status Date / Time No Known Allergies Allergy Verified 07/04/24 17:30 Physical Examination - Vital Signs Vital Signs: Vital Signs Temp Pulse Pulse Resp BP BP Pulse Ox 07/05/24 12:00 98.2 F 58 L 16 116/70 98 07/05/24 08:00 99.4 F 63 15 106/65 96 07/05/24 04:00 73 18 115/72 97 07/04/24 23:46 68 07/04/24 23:02 97.4 F L 69 14 104/58 95 07/04/24 21:00 72 18 133/81 97 07/04/24 20:27 98.2 F 67 18 141/71 98 07/04/24 19:15 62 18 105/61 98 07/04/24 18:30 64 20 118/81 98 07/04/24 18:00 57 L 20 104/69 97 07/04/24 17:30 64 18 125/72 98 07/04/24 17:00 65 18 128/78 97 07/04/24 16:45 62 20 132/80 99 07/04/24 16:30 67 20 125/84 99 07/04/24 16:03 99.1 F 72 18 134/80 96 Intake and Output 07/04/24 07/05/24 07/05/24 22:59 06:59 14:59 Other: Voiding Method Toilet # Voids 1 Weight 108.862 kg 108.8 kg GENERAL: The patient is lying in bed and is not in acute distress. NEUROLOGICAL: Higher mental function: The patient is awake, alert, oriented to self, place and time. Patient is following commands. No aphasia and no neglect. Cranial nerves: The pupils are round, equal and reactive to light and accommodation. Visual hua are full to confrontation throughout. Extraocular movement is intact no nystagmus is noted. Facial sensation is normal to touch throughout. The facial strength is has weakness over the right upper and lower side. Hearing is normal bilaterally to hand rub. Tongue is midline and moved [id number] without any difficulty. No dysarthria is noted. Shoulder shrug is normal bilaterally. Motor: The strength is 5 over 5 throughout. Normal tone and bulk. Cerebellum: Normal finger to nose heel to sanchez bilaterally. Sensation: Sensation is normal to touch throughout. Reflexes (right/left): 2+ throughout. Plantars are downgoing bilaterally. Results - Laboratory Findings CBC and BMP: 07/04/24 16:31 04/23/25 16:31 Abnormal Lab Findings: Abnormal Labs 07/04/24 07/04/24 07/04/24 16:31 16:31 17:39 WBC 4.16 L MPV 9.2 L BUN 22 H ALT 51 H Creatine Kinase 245 H Ur Specific [place] >1.050 H Assessment and Plan Assessment: This is a 43-year-old gentleman who presents the emergency department because of right facial weakness involving the right upper and lower half. 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 Unlikely stroke History of dyslipidemia Plan: Started on prednisone 60 mg p.o. by the primary team. Recommend starting antiviral because of likely viral cause of Ponce's palsy. Recommend corneal lubricant over the right eye as well as an eye patch to avoid corneal ulcer. We discontinued the aspirin that was started during this hospital visit since likely this is a stroke. He was given aspirin 325 mg once in the ED and then was started on aspirin 81 mg daily. Again unlikely stroke but if he does have a stroke then will resume aspirin. He is on Lipitor 10 mg nightly Pending MRI of the brain with and without Will defer the rest of the medical management to primary team Thank you for the consultation. Time with Patient: Greater than 30
[2024-07-05] MEDS: valACYclovir HCL 1,000 MG TABLET PO SCH (14:47)
[2024-07-05] MEDS: ATORVASTATIN 10 MG TAB PO SCH (20:07)
[2024-07-06 11:53] VITALS: BP 136/76; PULSE 72; RESP 16; TEMP 97.6
[2024-07-06] MEDS ORDERED: guaiFENesin-DM 600/30MG 1 EACH TAB.ER.12H PO PRN (12:16)
--- NOTE | 2024-07-06 13:22 | MR ---
EXAMINATION TYPE: MR brain wo/w con DATE OF EXAM: 07/06/2024 1:10 PM COMPARISON: None. CLINICAL INDICATION: Male, 43 years old with history of cva vs. bells palsy, CVA vs [place] Palsy TECHNIQUE: Multiplanar, multiecho imaging on a 3.0 Michelle magnet is performed through the brain. Stud y is performed within 24 hours of arrival to the hospital.Multiplanar, multiecho imaging on a 3.0 Judith la magnet is performed through the knee. IV Contrast: 11 mL Gadobutrol (None, if empty) FINDINGS: The craniovertebral junction is normal. The pituitary is normal. Optic chiasm is visualized is norm al Diffusion-weighted imaging is performed. No abnormal hyperintensity is present to suggest an acute i ntracranial infarct or acute ischemic change. Signal within the brain is normal. No mass effect is evident. No suspicious areas of enhancement are evident. No suspicious enhancement to the temporal bone region. Ventricles and sulci are appropriate for the patient age. IMPRESSION: 1. No acute abnormality pre- and Post- contrast MRI brain [facility], Workstation: [facility], 07/06/2024 1:19 PM
--- NOTE | 2024-07-06 13:45 | P.DS ---
Providers Date of admission: 07/04/24 19:06 Expected date of discharge: 07/06/24 Attending physician: Gilbert Schroeder Consults: 07/04/24 19:05 Consult Physician Routine Consulting Provider: Damon Pineda Consult Reason/Comments: cva vs. bells palsy Do you want consulting provider notified?: Already Contacted Primary care physician: [facility] Course: Discharge Diagnosis: Ponce's palsy Dyslipidemia Hospital Course: 43-year-old male with hyperlipidemia and nephrolithiasis status post right-sided stent insertion in 11/2023 here for right facial numbness and tongue. On admission: Vitals: 99.1 Fahrenheit, pulse rate 72, respiratory rate 18, blood pressure 134/80 Labs: WBC 4.16, hemoglobin 15.6, creatinine kinase 245, troponin less than 0.0 12, BUN 22, creatinine 1.25. Urinalysis unremarkable. Cepheid 4 Plex negative. Imaging: EKG showed sinus bradycardia with a rate of 56 bpm, normal axis, nonspecific ST-T changes, inverted T waves in leads I and III, good R wave progression, QTc [address] showed no acute process. Chest x-ray showed no acute cardiopulmonary process. CT head did not show any significant stenosis. Brain MRI with and without contrast did not show any acute abnormalities. Patient started on oral steroids and Valtrex. Patient seen and examined at bedside. Vital signs reviewed and stable. General: Nontoxic, no distress, appears at stated age Derm: Warm, dry Head: Atraumatic, normocephalic, symmetric Eyes: EOMI, no lid lag, anicteric sclera Mouth: No lip lesion, mucus membranes moist Cardiovascular: S1S2 reg, no murmur Lungs: CTA bilateral, no rhonchi, no rales, no accessory muscle use Abdominal: Soft, nontender to palpation, no guarding, no appreciable organomegaly Ext: No gross muscle atrophy, no edema, no contractures Neuro: Right facial palsy Psych: Alert, oriented, appropriate affect A total of 36 minutes of time were spent preparing this complex discharge summary. Patient was discharged on 07/06/24 at 1344. Patient Condition at Discharge: Stable Plan - Discharge Summary Discharge Rx Participant: No New Discharge Prescriptions: New Artificial Tears-Hypromellose [Artificial Tear Drops] 1 drops RIGHT EYE TID PRN #10 ml PRN Reason: Dry Eye(S) predniSONE [Deltasone] 60 mg PO DAILY #18 tab valACYclovir HCL [Valtrex] 1,000 mg PO BID #12 tab Continue Simvastatin [Zocor] 20 mg PO HS Discontinued predniSONE 50 mg PO DIRECTED Discharge Medication List Simvastatin [Zocor] 20 mg PO HS 11/16/23 [History] Artificial Tears-Hypromellose [Artificial Tear Drops] 1 drops RIGHT EYE TID PRN #10 ml 07/06/24 [Rx] predniSONE [Deltasone] 60 mg PO DAILY #18 tab 07/06/24 [Rx] valACYclovir HCL [Valtrex] 1,000 mg PO BID #12 tab 07/06/24 [Rx] Follow up Appointment(s)/Referral(s): Edwardo Park MD [Primary Care Provider] - 1-2 days Patient Instructions/Handouts: Ponce Palsy (DC) Activity/Diet/Wound Care/Special Instructions: Please see your PCP. Discharge Disposition: HOME SELF-CARE
--- NOTE | 2024-07-06 15:04 | P.PN ---
Subjective Progress Note Date: 07/06/24 I am following-up with patient and he feels about the same. Denies any new neurological issues or worsening of his symptoms. Pending MRI Brain. Objective - Vital Signs Vital signs: Vital Signs Temp 97.6 F 07/06/24 11:51 Pulse 72 07/06/24 11:51 Resp 16 07/06/24 11:51 BP 136/76 07/06/24 11:51 Pulse Ox 96 07/06/24 11:51 FiO2 Intake & Output 07/05/24 07/06/24 07/06/24 18:59 06:59 18:59 Intake Total 540 570 608 Balance 540 570 608 Weight 109 kg Intake: IV 10 10 Invasive Line 1 10 10 Oral 540 560 598 Other: Voiding Method Toilet Toilet # Voids 2 1 - Exam GENERAL: The patient is lying in bed and is not in acute distress. NEUROLOGICAL: Higher mental function: The patient is awake, alert, oriented to self, place and time. Patient is following commands. No aphasia and no neglect. Cranial nerves: The pupils are round, equal and reactive to light and accommodation. Visual hua are full to confrontation throughout. Extraocular movement is intact no nystagmus is noted. Facial sensation is normal to touch throughout. The facial strength is has weakness over the right upper and lower side. Hearing is normal bilaterally to hand rub. Tongue is midline and moved [id number] without any difficulty. No dysarthria is noted. Shoulder shrug is normal bilaterally. Motor: The strength is 5 over 5 throughout. Normal tone and bulk. Cerebellum: Normal finger to nose heel to sanchez bilaterally. Sensation: Sensation is normal to touch throughout. Reflexes (right/left): 2+ throughout. Plantars are downgoing bilaterally. Some of the workup during this hospital visit consisted of: I reviewed the lab workup. CT of the head is reported as no acute intracranial process. I personally reviewed the CT and agree with report. CT angiography of the head and neck is unremarkable for any significant stenosis, any dissection or any intracranial aneurysm. - Labs CBC & Chem 7: 07/04/24 16:31 07/04/24 16:31 Assessment and Plan Assessment: This is a 43-year-old gentleman who presents the emergency department because of right facial weakness involving the right upper and lower half. 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 Unlikely stroke History of dyslipidemia Plan: Continue prednisone 60 mg for 7-10 days total time. Continue Valtrex 1000mg bid for total 7 days. Is on artificial tear. Recommend eye patch to wear PRN to avoid corneal ulcer. We discontinued the aspirin that was started during this hospital visit since likely this is a stroke. He was given aspirin 325 mg once in the ED and then was started on aspirin 81 mg daily. Again unlikely stroke but if he does have a stroke then will resume aspirin. He is on Lipitor 10 mg nightly Pending MRI of the brain with and without Will defer the rest of the medical management to primary team Time with Patient: Less than 30
== END 2024-07-06 14:56 | disposition home or self-care (01) | DRG 74 ==
LOC: EC 15:46 → 3SCARD 19:06
PROVIDERS: ADMIT Student in an Organized Health Care Education/Training Program; ATTEND Student in an Organized Health Care Education/Training Program
DX: G51.0 Bell's palsy (principal); E78.00 Pure hypercholesterolemia, unspecified; E78.5 Hyperlipidemia, unspecified; H54.7 Unspecified visual loss; Z79.82 Long term (current) use of aspirin; Z79.899 Other long term (current) drug therapy; Z87.442 Personal history of urinary calculi; Z28.311 Partially vaccinated for COVID-19; Z28.21 Immunization not carried out because of patient refusal; Z87.440 Personal history of urinary (tract) infections
CPT/HCPCS: 36415; 70450; 70496; 70498; 70553; 71046; 80053; 80061; 81003; 82550; 84484; 85025; 85610; 85730; 87636; 93005; 94640; 96360; 99291